=== PATIENT | female | born 1965 | race American Indian/Alaskan Native ===

== ENCOUNTER 2021-05-07 16:38 | Inpatient (IN) | payer MEDICARE ==
--- NOTE | 2021-05-08 08:19 | History and Physical Report ---
GP History & Physical - History of Present Illness Date of admission: 05/07/21 Date of Examination: 05/08/21 Reason for Admission: Danger to self, Failure of Outpatient Treatment, Severe anxiety/depression History of Present Illness: HPI: Presents to ER with SI with plan to slit her throat or cut wrist with knife. Per referral source, pt has stopped seeing her psychiatrist and has hx/o prior SI by OD in 2020. The patient was seen today. She is calm, and cooperative. She is sitting on side of the bed. She has a right BKA. The patient is a/o x 3. She says she verbalizes hearing voices telling her to kill herself. The patient also endorses SI with a plan to cut herself. She says she has a history of Bipolar and schizophrenia. The patient says she takes a lot of meds. She could not readily recall them but states she has them on a list. The patient denies any illicit drug use. 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 She says she smokes a pack of cigarets a day. The patient says she was living with her brother but states he told her if she came to the hospital she could not come back there. She says she is homeless. PAST PSYCHIATRIC HISTORY Diagnoses: Schizophrenia, Bipolar Suicide attempts or Self-harm behavior: Yes Prior psychiatric hospitalizations: Yes Substance Abuse history: Not in recent years Previous psychiatric medications tried: could not recall Outpatient treatment: Yes PAST MEDICAL HISTORY: None reported Family Psychiatric History: None reported or documented SOCIAL HISTORY Living arrangement: Homeless Marital status: Single Disabled REVIEW OF SYSTEMS Constitutional: Negative for weight loss ENT: Negative for stridor Respiratory: Negative for cough or hemoptysis All other systems reviewed and are negative MENTAL STATUS EXAMINATION General Appearance and Behavior: Age appropriate, good hygiene, wearing appro priate clothes, good eye contact, calm, cooperative Cooperation: Participating/engaged, but Guarded Psychomotor Behavior: Psychomotor normal Mood: Depressed Affect and affective range: congruent with stated mood Thought Process: goal directed Thought Content: helplessness, hallucinations Speech: normal tone and pace Suicidal Ideation: Yes Homicidal Ideation: Denies Hallucinations: Auditory Delusions: None elicited Impulse Control: Limited Insight and Judgment: Limited insight and judgment Memory: Limited Attention: attentive Orientation: Alert, oriented Assessment and Plan Schizophrenia Treatment Plan Patient admitted for inpatient psychiatric evaluation, medication adjustment and close monitoring The patient's behavior, mood, sleep and appetite will be closely monitored. Patient enrolled in individual and group therapeutic sessions and encouraged to attend. Patient provided with a safe and structured environment. Patient's physical health needs will be addressed by the Hospitalist. Hospitalist Consulted Labs including CBC, CMP, Lipid profile and Hemoglobin A1C levels ordered for baseline reference Social Assessment will be completed and the Oral Pathologist will work with patient and family to ensure a suitable and safe disposition Medication adjustment will be made as clinically indicated Continue home meds Usual Wellness Restorationist/Preservation: - Start Trazodone 50 mg po QHS & 50 mg po QHS PRN between 10 PM & 2 AM for insomnia - Start Melatonin 5 mg po QHS to promote circadian rhythm The patient agreed on the treatment plan, understood the risk, benefit, alternative treatment, potential consequence of no treatment, and gave informed consent. Estimated days: Post hospital care: primary care provider, psychiatric provider Case staffed with Dr. Woodward Legal Status: Voluntary Reaction to Hospitalization: Accepting Medications and Allergies Allergies Allergy/AdvReac Type Severity Reaction Status Date / Time aspirin Allergy Unknown Verified 05/08/21 02:24 Penicillins Allergy Unknown Verified 05/08/21 02:24 tetracycline Allergy Unknown Verified 05/08/21 02:24 Home Medications Medication Instructions Recorded Confirmed Last Taken Type Apixaban [Eliquis] 5 mg PO BID 05/07/21 05/07/21 Unknown History AtorvaSTATin [Lipitor] 20 mg PO QHS 05/07/21 05/07/21 Unknown History Divalproex [Osmin ANN] 1,000 mg PO BID 05/07/21 05/07/21 Unknown History Gabapentin [Neurontin] 300 mg PO TID 05/07/21 05/07/21 Unknown History Latanoprost 0.005% [Xalatan 0.005%] 1 drop OP QPM 05/07/21 05/07/21 Unknown History Sertraline [Zoloft] 100 mg PO QDAY 05/07/21 05/07/21 Unknown History Sitagliptin Phosphate [Januvia] 100 mg PO DAILY 05/07/21 05/07/21 Unknown History haloperidoL [Haloperidol] 5 mg PO QPM 05/07/21 05/07/21 Unknown History levETIRAcetam [Keppra TAB] 1,000 mg PO BID 05/07/21 05/07/21 Unknown History metFORMIN [Glucophage] 500 mg PO BID 05/07/21 05/07/21 Unknown History Results - Results Labs/Vitals: Laboratory Last Values POC Glucose 149 mg/dL (70-105) H 05/08/21 06:05 Last Vital Signs Temp 98.9 F 05/08/21 01:10 Pulse 89 05/08/21 01:10 Resp 18 05/08/21 01:10 BP 134/76 05/08/21 01:10 Pulse Ox 97 05/08/21 01:10 Physical Examination - Constitutional Vitals: Vital Signs Temp Pulse Resp BP Pulse Ox 98.9 F 89 18 134/76 97 05/08/21 01:10 05/08/21 01:10 05/08/21 01:10 05/08/21 01:10 05/08/21 01:10 Temperature -Last 24 Hours Temperature 98.9 F Mental Status Exam - Vital signs Last Vital Signs Temp 98.9 F 05/08/21 01:10 Pulse 89 05/08/21 01:10 Resp 18 05/08/21 01:10 BP 134/76 05/08/21 01:10 Pulse Ox 97 05/08/21 01:10 Physician Certification - Certification Statement Physician Certification Statement: This is an acknowledgement statement that PRESLEY HERNANDEZ is a 55 year old F who requires inpatient psychiatric admission for treatment which could reasonably be expected to improve the patient's condition for Estimated period of time patient will need to remain in the hospital: [ ] Plan for post-hospital care: [ ]
[2021-05-08] MEDS: SERTRALINE 100 MG TAB PO SCH (09:37)
[2021-05-08] MEDS: DIVALPROEX DR 500 MG TAB PO SCH ×2 (09:37→21:32)
[2021-05-08] MEDS: levETIRAcetam 500 MG TAB PO SCH ×2 (09:37→21:33)
[2021-05-08] MEDS: GABAPENTIN 300 MG CAP PO SCH ×3 (09:43→21:32)
[2021-05-08] MEDS: metFORMIN 500 MG TAB PO SCH ×2 (09:43→17:17)
[2021-05-08] MEDS ORDERED: NON-FORMULARY EACH (Sitagliptin Phosphate [Januvia] 100 MG Tablet) PO SCH (10:00)
[2021-05-08] MEDS ORDERED: NON-FORMULARY EACH (Apixaban 5 MG Tablet) PO SCH (10:00)
--- NOTE | 2021-05-08 10:56 | Consultation ---
History of Present Illness - Reason for Consult Consult date: 05/08/21 Medical Management Requesting physician: NGUYỄN DAVIS - History of Present Illness 55 YO Female HTN, OA, Seizure Disorder, COPD, HLD, DM, PE on therapeutic anticoagulation with Eliquis, Schizophrenia, Bipolar Disorder admitted to [facility] for psychiatric stabilization. Consult placed by Dr. Davis for medical management. Pt seen and evaluated in the recreation room. Pt resting comfortably. Patient appears to be at baseline level of cognition and function. No reports of fever, chills, chest pain, palpitation or productive cough, skin rash, recent contact, known exposure to COVID-19. Past History Past Medical History: diabetes, hypertension Past Surgical History: No surgical history, Other (Reviewed) Social history: single. denies: smoking, alcohol abuse Family history: hypertension Medications and Allergies Allergies Allergy/AdvReac Type Severity Reaction Status Date / Time aspirin Allergy Unknown Verified 05/08/21 02:24 Penicillins Allergy Unknown Verified 05/08/21 02:24 tetracycline Allergy Unknown Verified 05/08/21 02:24 Home Medications Medication Instructions Recorded Confirmed Last Taken Type Apixaban [Eliquis] 5 mg PO BID 05/07/21 05/07/21 Unknown History AtorvaSTATin [Lipitor] 20 mg PO QHS 05/07/21 05/07/21 Unknown History Divalproex [Osmin ANN] 1,000 mg PO BID 05/07/21 05/07/21 Unknown History Gabapentin [Neurontin] 300 mg PO TID 05/07/21 05/07/21 Unknown History Latanoprost 0.005% [Xalatan 0.005%] 1 drop OP QPM 05/07/21 05/07/21 Unknown History Sertraline [Zoloft] 100 mg PO QDAY 05/07/21 05/07/21 Unknown History Sitagliptin Phosphate [Januvia] 100 mg PO DAILY 05/07/21 05/07/21 Unknown History haloperidoL [Haloperidol] 5 mg PO QPM 05/07/21 05/07/21 Unknown History levETIRAcetam [Keppra TAB] 1,000 mg PO BID 05/07/21 05/07/21 Unknown History metFORMIN [Glucophage] 500 mg PO BID 05/07/21 05/07/21 Unknown History Active Meds: Active Medications Apixaban (Apixaban 5 Mg Tab) 5 mg PO Q12HR [facility] Atorvastatin Calcium (Atorvastatin 20 Mg Tab) 20 mg PO QHS [facility] Divalproex Sodium (Divalproex Dr 500 Mg Tab) 1,000 mg PO BID [facility] Last Admin: 05/08/21 09:37 Dose: 1,000 mg Gabapentin (Gabapentin 300 Mg Cap) 300 mg PO TID [facility] Last Admin: 05/08/21 09:43 Dose: 300 mg Haloperidol (Haloperidol 5 Mg Tab) 5 mg PO QPM [facility] Latanoprost (Latanoprost 0.005% Ophth Soln 2.5 Ml) 1 drops OU QPM [facility] Levetiracetam (Levetiracetam 500 Mg Tab) 1,000 mg PO BID [facility] Last Admin: 05/08/21 09:37 Dose: 1,000 mg Linagliptin (Linagliptin 5 Mg Tab) 5 mg PO QDDIAB [facility] Metformin HCl (Metformin 500 Mg Tab) 500 mg PO BIDDIAB [facility] Last Admin: 05/08/21 09:43 Dose: 500 mg Sertraline HCl (Sertraline 100 Mg Tab) 100 mg PO QDAY [facility] Last Admin: 05/08/21 09:37 Dose: 100 mg Review of Systems Constitutional: no weight loss, no weight gain, no chills Ears, nose, mouth and throat: no ear pain, no tinnitis, no decreased hearing, no nose pain, no nasal discharge Breasts: no change in shape, no swelling Cardiovascular: no chest pain, no orthopnea, no palpitations, no edema Respiratory: no cough, no cough with sputum, no shortness of breath Gastrointestinal: no abdominal pain, no nausea, no diarrhea, no change in bowel habits, no hematemesis Genitourinary Female: no pelvic pain, no flank pain, no dysuria, no urinary frequency, no urgency Rectal: no pain, no incontinence, no bleeding Musculoskeletal: no neck stiffness, no neck pain Integumentary: no rash, no pruritis, no redness, no wounds, no jaundice Neurological: no head injury, no paralysis, no parathesias, no tingling, no seizures Psychiatric: depression, mood swings, no sleep disturbances Endocrine: no cold intolerance, no polyphagia, no excessive thirst, no polyuria, no excessive sweating Hematologic/Lymphatic: no easy bruising, no easy bleeding Allergic/Immunologic: no allergic rhinitis, no wheezing Exam - Constitutional Vitals: Temp Pulse Resp BP Pulse Ox 98.9 F 89 18 134/76 97 05/08/21 01:10 05/08/21 01:10 05/08/21 01:10 05/08/21 01:10 05/08/21 01:10 General appearance: Present: no acute distress, well-nourished - EENT Eyes: Present: PERRL ENT: hearing intact, clear oral mucosa - Neck Neck: Present: supple, normal ROM - Respiratory Respiratory effort: normal Respiratory: bilateral: CTA - Cardiovascular Heart Sounds: Present: S1 & S2. Absent: rub, click - Extremities Extremities: pulses symmetrical, No edema Peripheral Pulses: within normal limits - Abdominal General gastrointestinal: Present: soft, non-tender, non-distended, normal bowel sounds Female genitourinary: Present: normal - Integumentary Integumentary: Present: clear, warm, dry - Musculoskeletal Musculoskeletal: gait normal, strength equal bilaterally - Psychiatric Psychiatric: cooperative - Neurologic Neurologic: CNII-XII intact, moves all extremities Results - Labs Labs: Abnormal lab results 05/08/21 Range/Units 06:05 POC Glucose 149 H (70-105) mg/dL Assessment and Plan - Patient Problems (1) Hypertension Current Visit: Yes Status: Acute Qualifiers: Hypertension type: primary hypertension Qualified Code(s): I10 - Essential (primary) hypertension Plan to address problem: Monitor blood pressure every shift, continue medical management. (2) Diabetes Current Visit: Yes Status: Acute Plan to address problem: Consistent carbohydrate diet, Accu-Chek, insulin protocol, hypoglycemia protocol, continue oral antihyperglycemic therapy. (3) Pulmonary embolism Current Visit: Yes Status: Acute Plan to address problem: Continue therapeutic anticoagulation, supportive care. (4) Schizophrenia Current Visit: Yes Status: Acute Qualifiers: Schizophrenia type: unspecified Qualified Code(s): F20.9 - Schizophrenia, unspecified Plan to address problem: Supportive care, continue medical management. (5) Bipolar disorder Current Visit: Yes Status: Acute Plan to address problem: Supportive care, continue medical management. (6) COPD (chronic obstructive pulmonary disease) Current Visit: Yes Status: Acute Plan to address problem: Supplemental oxygen, pulse oximetry as clinically indicated, supportive care. No acute exacerbation at this time. (7) Seizure disorder Current Visit: Yes Status: Acute Plan to address problem: Continue antiepileptic therapy with Keppra, supportive care, seizure precautions. (8) Osteoarthritis Current Visit: Yes Status: Acute Plan to address problem: Pain control, NSAID therapy as clinically indicated, supportive care. (9) Advance care planning Current Visit: Yes Status: Acute Plan to address problem: Disease education conducted, care plan discussed, diagnoses discussed, prognosis discussed, patient is full code. Patient knowledges understanding agree with care plan, +30 minutes.
[2021-05-08] MEDS: LINAGLIPTIN 5 MG TAB PO SCH (17:17)
[2021-05-08] MEDS: APIXABAN 5 MG TAB PO SCH ×2 (17:17→21:33)
[2021-05-08] MEDS: LATANOPROST 0.005% OPHTH SOLN 2.5 ML OU SCH (17:17)
[2021-05-08] MEDS: HALOPERIDOL 5 MG TAB PO SCH (18:00)
--- NOTE | 2021-05-09 09:28 | Progress Note ---
Subjective Date of service: 05/09/21 Subjective Comment: The patient was seen this morning. She reports doing well; endorses depression rating as 5/10. The patient reports sleep and appetite as ok. She denies any current suicidal/homicidal ideation and denies hallucinations. REVIEW OF SYSTEMS Constitutional: Negative for weight loss ENT: Negative for stridor Respiratory: Negative for cough or hemoptysis All other systems reviewed and are negative MENTAL STATUS EXAMINATION General Appearance and Behavior: Age appropriate, good hygiene, wearing appropriate clothes, good eye contact, calm, cooperative Cooperation: Participating/engaged, but Guarded Psychomotor Behavior: Psychomotor normal Mood: Depressed Affect and affective range: congruent with stated mood Thought Process: goal directed Thought Content: reality Speech: normal tone and pace Suicidal Ideation: Denies Homicidal Ideation: Denies Hallucinations: Denies Delusions: None elicited Impulse Control: Limited Insight and Judgment: Limited insight and judgment Memory: Limited Attention: attentive Orientation: Alert, oriented Assessment and Plan Schizophrenia Treatment Plan Patient admitted for inpatient psychiatric evaluation, medication adjustment and close monitoring The patient's behavior, mood, sleep and appetite will be closely monitored. Patient enrolled in individual and group therapeutic sessions and encouraged to attend. Patient provided with a safe and structured environment. Patient's physical health needs will be addressed by the Hospitalist. Hospitalist Consulted Labs including CBC, CMP, Lipid profile and Hemoglobin A1C levels ordered for baseline reference Social Assessment will be completed and the Production Proofreader will work with patient and family to ensure a suitable and safe disposition Medication adjustment will be made as clinically indicated Continue home meds Usual Wellness Jain/Preservation: - Start Trazodone 50 mg po QHS & 50 mg po QHS PRN between 10 PM & 2 AM for insomnia - Start Melatonin 5 mg po QHS to promote circadian rhythm The patient agreed on the treatment plan, understood the risk, benefit, alternative treatment, potential consequence of no treatment, and gave informed consent. Estimated days: Post hospital care: primary care provider, psychiatric provider Case staffed with Dr. Woodward Legal Status: Voluntary Reaction to Hospitalization: Accepting Medications and Allergies Medications and Allergies Allergies Allergy/AdvReac Type Severity Reaction Status Date / Time aspirin Allergy Unknown Verified 05/08/21 02:24 Penicillins Allergy Unknown Verified 05/08/21 02:24 tetracycline Allergy Unknown Verified 05/08/21 02:24 Home Medications Medication Instructions Recorded Confirmed Last Taken Type Apixaban [Eliquis] 5 mg PO BID 05/07/21 05/07/21 Unknown History AtorvaSTATin [Lipitor] 20 mg PO QHS 05/07/21 05/07/[address] [Osmin ANN] 1,000 mg PO BID 05/07/21 05/07/21 Unknown History Gabapentin [Neurontin] 300 mg PO TID 05/07/21 05/07/21 Unknown History Latanoprost 0.005% [Xalatan 0.005%] 1 drop OP QPM 05/07/21 05/07/21 Unknown History Sertraline [Zoloft] 100 mg PO QDAY 05/07/21 05/07/21 Unknown History Sitagliptin Phosphate [Januvia] 100 mg PO DAILY 05/07/21 05/07/21 Unknown History haloperidoL [Haloperidol] 5 mg PO QPM 05/07/21 05/07/21 Unknown History levETIRAcetam [Keppra TAB] 1,000 mg PO BID 05/07/21 05/07/21 Unknown History metFORMIN [Glucophage] 500 mg PO BID 05/07/21 05/07/21 Unknown History Active Meds: Active Medications Apixaban (Apixaban 5 Mg Tab) 5 mg PO Q12HR [facility] Last Admin: 05/08/21 21:33 Dose: 5 mg Atorvastatin Calcium (Atorvastatin 20 Mg Tab) 20 mg PO QHS [facility] Last Admin: 05/08/21 21:33 Dose: 20 mg Divalproex Sodium (Divalproex Dr 500 Mg Tab) 500 mg PO BID [facility] Gabapentin (Gabapentin 300 Mg Cap) 300 mg PO TID [facility] Last Admin: 05/08/21 21:32 Dose: 300 mg Haloperidol (Haloperidol 5 Mg Tab) 5 mg PO QPM [facility] Latanoprost (Latanoprost 0.005% Ophth Soln 2.5 Ml) 1 drops OU QPM [facility] Last Admin: 05/08/21 17:17 Dose: 1 drops Levetiracetam (Levetiracetam 500 Mg Tab) 1,000 mg PO BID [facility] Last Admin: 05/08/21 21:33 Dose: 1,000 mg Linagliptin (Linagliptin 5 Mg Tab) 5 mg PO QDDIAB [facility] Last Admin: 05/08/21 17:17 Dose: 5 mg Metformin HCl (Metformin 500 Mg Tab) 500 mg PO BIDDIAB [facility] Last Admin: 05/08/21 17:17 Dose: Not Given Sertraline HCl (Sertraline 100 Mg Tab) 100 mg PO QDAY [facility] Last Admin: 05/08/21 09:37 Dose: 100 mg Results - Results Labs/Vitals: Laboratory Last Values POC Glucose 102 mg/dL (70-105) 05/09/21 05:46 Last Vital Signs Temp 98.2 F 05/08/21 22:00 Pulse 83 05/08/21 22:00 Resp 17 05/08/21 22:00 BP 132/77 05/08/21 22:00 Pulse Ox 98 05/08/21 19:49
[2021-05-09] MEDS: GABAPENTIN 300 MG CAP PO SCH ×3 (14:00→20:27)
[2021-05-09] MEDS: levETIRAcetam 500 MG TAB PO SCH ×2 (14:00→21:06)
[2021-05-09] MEDS: SERTRALINE 100 MG TAB PO SCH (14:00)
[2021-05-09] MEDS: APIXABAN 5 MG TAB PO SCH ×2 (14:00→21:06)
[2021-05-09] MEDS: DIVALPROEX DR 500 MG TAB PO SCH ×2 (14:00→21:06)
[2021-05-09] MEDS: LINAGLIPTIN 5 MG TAB PO SCH (14:00)
[2021-05-09] MEDS: metFORMIN 500 MG TAB PO SCH ×2 (16:21→17:10)
[2021-05-09] MEDS: HALOPERIDOL 5 MG TAB PO SCH (17:10)
[2021-05-09] MEDS: LATANOPROST 0.005% OPHTH SOLN 2.5 ML OU SCH (17:10)
--- NOTE | 2021-05-10 08:38 | Progress Note ---
Subjective Date of service: 05/10/21 Subjective Comment: 05/10/21: The patient was seen this morning. She is mute but communicated via writing " My name is Wendy Agosto and I an 85 years old." She presents with flat affect. Per nurse, "Pt in bed alert and awake. Pt has being awake since the past 3hrs. Restlessness/disoriented." 05/09/21:The patient was seen this morning. She reports doing well; endorses depression rating as 5/10. The patient reports sleep and appetite as ok. She denies any current suicidal/homicidal ideation and denies hallucinations. REVIEW OF SYSTEMS Constitutional: Negative for weight loss ENT: Negative for stridor Respiratory: Negative for cough or hemoptysis All other systems reviewed and are negative MENTAL STATUS EXAMINATION General Appearance and Behavior: Age appropriate, good hygiene, wearing appropr iate clothes, good eye contact, calm, cooperative Cooperation: Participating/engaged, but Guarded Psychomotor Behavior: Psychomotor normal Mood: Depressed Affect and affective range: flat Thought Process: goal directed Thought Content: reality Speech: normal tone and pace Suicidal Ideation: Denies Homicidal Ideation: Denies Hallucinations: Denies Delusions: None elicited Impulse Control: Limited Insight and Judgment: Limited insight and judgment Memory: Limited Attention: attentive Orientation: Alert, oriented Assessment and Plan Schizophrenia Treatment Plan Patient admitted for inpatient psychiatric evaluation, medication adjustment and close monitoring The patient's behavior, mood, sleep and appetite will be closely monitored. Patient enrolled in individual and group therapeutic sessions and encouraged to attend. Patient provided with a safe and structured environment. Patient's physical health needs will be addressed by the Hospitalist. Hospitalist Consulted Labs including CBC, CMP, Lipid profile and Hemoglobin A1C levels ordered for baseline reference Social Assessment will be completed and the Civil Process Server will work with patient and family to ensure a suitable and safe disposition Medication adjustment will be made as clinically indicated Continue home meds Usual Wellness Taoist/Preservation: - Start Trazodone 50 mg po QHS & 50 mg po QHS PRN between 10 PM & 2 AM for insomnia - Start Melatonin 5 mg po QHS to promote circadian rhythm The patient agreed on the treatment plan, understood the risk, benefit, alternative treatment, potential consequence of no treatment, and gave informed consent. Estimated days: Post hospital care: primary care provider, psychiatric provider Case staffed with Dr. Woodward Legal Status: Voluntary Reaction to Hospitalization: Accepting Medications and Allergies Medications and Allergies Allergies Allergy/AdvReac Type Severity Reaction Status Date / Time aspirin Allergy Unknown Verified 05/08/21 02:24 Penicillins Allergy Unknown Verified 05/08/21 02:24 tetracycline Allergy Unknown Verified 05/08/21 02:24 Home Medications Medication Instructions Recorded Confirmed Last Taken Type Apixaban [Eliquis] 5 mg PO BID 05/07/21 05/07/21 Unknown History AtorvaSTATin [Lipitor] 20 mg PO QHS 05/07/21 05/07/[address] [DepaKOLATRELL DR] 1,000 mg PO BID 05/07/21 05/07/21 Unknown History Gabapentin [Neurontin] 300 mg PO TID 05/07/21 05/07/21 Unknown History Latanoprost 0.005% [Xalatan 0.005%] 1 drop OP QPM 05/07/21 05/07/21 Unknown History Sertraline [Zoloft] 100 mg PO QDAY 05/07/21 05/07/21 Unknown History Sitagliptin Phosphate [Januvia] 100 mg PO DAILY 05/07/21 05/07/21 Unknown History haloperidoL [Haloperidol] 5 mg PO QPM 05/07/21 05/07/21 Unknown History levETIRAcetam [Keppra TAB] 1,000 mg PO BID 05/07/21 05/07/21 Unknown History metFORMIN [Glucophage] 500 mg PO BID 05/07/21 05/07/21 Unknown History Active Meds: Active Medications Apixaban (Apixaban 5 Mg Tab) 5 mg PO Q12HR [facility] Last Admin: 05/09/21 21:06 Dose: 5 mg Atorvastatin Calcium (Atorvastatin 20 Mg Tab) 20 mg PO QHS [facility] Last Admin: 05/09/21 21:06 Dose: 20 mg Divalproex Sodium (Divalproex Dr 500 Mg Tab) 500 mg PO BID [facility] Last Admin: 05/09/21 21:06 Dose: 500 mg Gabapentin (Gabapentin 300 Mg Cap) 300 mg PO TID [facility] Last Admin: 05/09/21 20:27 Dose: 300 mg Haloperidol (Haloperidol 5 Mg Tab) 5 mg PO QPM [facility] Last Admin: 05/09/21 17:10 Dose: 5 mg Latanoprost (Latanoprost 0.005% Ophth Soln 2.5 Ml) 1 drops OU QPM [facility] Last Admin: 05/09/21 17:10 Dose: 1 drops Levetiracetam (Levetiracetam 500 Mg Tab) 1,000 mg PO BID [facility] Last Admin: 05/09/21 21:06 Dose: 1,000 mg Linagliptin (Linagliptin 5 Mg Tab) 5 mg PO QDDIAB [facility] Last Admin: 05/09/21 14:00 Dose: 5 mg Metformin HCl (Metformin 500 Mg Tab) 500 mg PO BIDDIAB [facility] Last Admin: 05/09/21 17:10 Dose: 500 mg Sertraline HCl (Sertraline 100 Mg Tab) 100 mg PO QDAY [facility] Last Admin: 05/09/21 14:00 Dose: 100 mg Results - Results Labs/Vitals: Laboratory Last Values POC Glucose 126 mg/dL (70-105) H 05/10/21 06:11 Last Vital Signs Temp 99.1 F 05/09/21 20:00 Pulse 83 05/09/21 22:00 Resp 17 05/09/21 20:00 BP 132/77 05/09/21 22:00 Pulse Ox 79 L 05/09/21 20:00
[2021-05-10] MEDS ORDERED: ZIPRASIDONE MESYLATE 20 MG VIAL IM PRN (08:48)
[2021-05-10] MEDS: GABAPENTIN 300 MG CAP PO SCH ×3 (09:52→21:06)
[2021-05-10] MEDS: levETIRAcetam 500 MG TAB PO SCH ×2 (09:52→21:06)
[2021-05-10] MEDS: metFORMIN 500 MG TAB PO SCH ×2 (09:52→17:09)
[2021-05-10] MEDS: DIVALPROEX DR 500 MG TAB PO SCH ×2 (09:52→21:06)
[2021-05-10] MEDS: APIXABAN 5 MG TAB PO SCH ×2 (09:52→21:06)
[2021-05-10] MEDS: LINAGLIPTIN 5 MG TAB PO SCH (09:52)
[2021-05-10] MEDS: SERTRALINE 100 MG TAB PO SCH (09:52)
[2021-05-10] MEDS: LATANOPROST 0.005% OPHTH SOLN 2.5 ML OU SCH (17:09)
[2021-05-10] MEDS: HALOPERIDOL 5 MG TAB PO SCH (17:09)
[2021-05-11] MEDS: SERTRALINE 100 MG TAB PO SCH (09:07)
[2021-05-11] MEDS: metFORMIN 500 MG TAB PO SCH ×2 (09:07→18:51)
[2021-05-11] MEDS: APIXABAN 5 MG TAB PO SCH ×2 (09:10→21:09)
[2021-05-11] MEDS: DIVALPROEX DR 500 MG TAB PO SCH ×2 (09:10→21:08)
[2021-05-11] MEDS: levETIRAcetam 500 MG TAB PO SCH ×2 (09:11→21:09)
--- NOTE | 2021-05-11 09:11 | Progress Note ---
Subjective Date of service: 05/11/21 Subjective Comment: 05/11/21:The patient was seen this morning. She reports doing well; reports sleep and appetite as fair. She endorses depression, rates as 4/10 and anxiety as 7/10. She denies any current suicidal/homicidal ideation but admits having intermittent visual hallucination. 05/10/21: The patient was seen this morning. She is mute but communicated via writing " My name is Wendy Agosto and I an 85 years old." She presents with flat affect. Per nurse, "Pt in bed alert and awake. Pt has being awake since the past 3hrs. Restlessness/disoriented." 05/09/21:The patient was seen this morning. She reports doing well; endorses depression rating as 5/10. The patient reports sleep and appetite as ok. She denies any current suicidal/homicidal ideation and denies hallucinations. REVIEW OF SYSTEMS Constitutional: Negative for weight loss ENT: Negative for stridor Respiratory: Negative for cough or hemoptysis All other systems reviewed and are negative MENTAL STATUS EXAMINATION General Appearance and Behavior: Age appropriate, good hygiene, wearing appropriate clothes, good eye contact, calm, cooperative Cooperation: Participating/engaged, but Guarded Psychomotor Behavior: Psychomotor normal Mood: Depressed Affect and affective range: flat Thought Process: goal directed Thought Content: reality Speech: normal tone and pace Suicidal Ideation: Denies Homicidal Ideation: Denies Hallucinations: Visual hallucinations Delusions: None elicited Impulse Control: Limited Insight and Judgment: Limited insight and judgment Memory: Limited Attention: attentive Orientation: Alert, oriented Assessment and Plan Schizophrenia Treatment Plan Patient admitted for inpatient psychiatric evaluation, medication adjustment and close monitoring The patient's behavior, mood, sleep and appetite will be closely monitored. Patient enrolled in individual and group therapeutic sessions and encouraged to attend. Patient provided with a safe and structured environment. Patient's physical health needs will be addressed by the Hospitalist. Hospitalist Consulted Labs including CBC, CMP, Lipid profile and Hemoglobin A1C levels ordered for baseline reference Social Assessment will be completed and the Jet Inspector will work with patient and family to ensure a suitable and safe disposition Medication adjustment will be made as clinically indicated Continue home meds Usual Wellness Anabaptism/Preservation: - Start Trazodone 50 mg po QHS & 50 mg po QHS PRN between 10 PM & 2 AM for insomnia - Start Melatonin 5 mg po QHS to promote circadian rhythm The patient agreed on the treatment plan, understood the risk, benefit, alternative treatment, potential consequence of no treatment, and gave informed consent. Estimated days: Post hospital care: primary care provider, psychiatric provider Case staffed with Dr. Woodward Legal Status: Voluntary Reaction to Hospitalization: Accepting Medications and Allergies Medications and Allergies Allergies Allergy/AdvReac Type Severity Reaction Status Date / Time aspirin Allergy Unknown Verified 05/08/21 02:24 Penicillins Allergy Unknown Verified 05/08/21 02:24 tetracycline Allergy Unknown Verified 05/08/21 02:24 Home Medications Medication Instructions Recorded Confirmed Last Taken Type Apixaban [Eliquis] 5 mg PO BID 05/07/21 05/07/21 Unknown History AtorvaSTATin [Lipitor] 20 mg PO QHS 05/07/21 05/07/[address] [DepaKOTE DR] 1,000 mg PO BID 05/07/21 05/07/21 Unknown History Gabapentin [Neurontin] 300 mg PO TID 05/07/21 05/07/21 Unknown History Latanoprost 0.005% [Xalatan 0.005%] 1 drop OP QPM 05/07/21 05/07/21 Unknown History Sertraline [Zoloft] 100 mg PO QDAY 05/07/21 05/07/21 Unknown History Sitagliptin Phosphate [Januvia] 100 mg PO DAILY 05/07/21 05/07/21 Unknown History haloperidoL [Haloperidol] 5 mg PO QPM 05/07/21 05/07/21 Unknown History levETIRAcetam [Keppra TAB] 1,000 mg PO BID 05/07/21 05/07/21 Unknown History metFORMIN [Glucophage] 500 mg PO BID 05/07/21 05/07/21 Unknown History Active Meds: Active Medications Apixaban (Apixaban 5 Mg Tab) 5 mg PO Q12HR [facility] Last Admin: 05/10/21 21:06 Dose: Not Given Atorvastatin Calcium (Atorvastatin 20 Mg Tab) 20 mg PO QHS [facility] Last Admin: 05/10/21 21:07 Dose: Not Given Divalproex Sodium (Divalproex Dr 500 Mg Tab) 1,000 mg PO BID [facility] Last Admin: 05/10/21 21:06 Dose: Not Given Gabapentin (Gabapentin 300 Mg Cap) 300 mg PO TID [facility] Last Admin: 05/10/21 21:06 Dose: Not Given Haloperidol (Haloperidol 5 Mg Tab) 5 mg PO QPM [facility] Last Admin: 05/10/21 17:09 Dose: 5 mg Latanoprost (Latanoprost 0.005% Ophth Soln 2.5 Ml) 1 drops OU QPM [facility] Last Admin: 05/10/21 17:09 Dose: 1 drops Levetiracetam (Levetiracetam 500 Mg Tab) 1,000 mg PO BID [facility] Last Admin: 05/10/21 21:06 Dose: Not Given Linagliptin (Linagliptin 5 Mg Tab) 5 mg PO QDDIAB [facility] Last Admin: 05/10/21 09:52 Dose: 5 mg Metformin HCl (Metformin 500 Mg Tab) 500 mg PO BIDDIAB [facility] Last Admin: 05/11/21 09:07 Dose: 500 mg Sertraline HCl (Sertraline 100 Mg Tab) 100 mg PO QDAY [facility] Last Admin: 05/11/21 09:07 Dose: 100 mg Ziprasidone (Ziprasidone Mesylate 20 Mg Vial) 20 mg IM Q4H PRN PRN Reason: Agitation Results - Results Labs/Vitals: Laboratory Last Values POC Glucose 126 mg/dL (70-105) H 05/10/21 06:11 Last Vital Signs Temp 98.5 F 05/10/21 09:44 Pulse 78 05/10/21 09:44 Resp 18 05/10/21 09:44 BP 97/70 05/10/21 09:44 Pulse Ox 98 05/10/21 09:44
[2021-05-11] MEDS: LINAGLIPTIN 5 MG TAB PO SCH (09:12)
[2021-05-11] MEDS: GABAPENTIN 300 MG CAP PO SCH ×3 (09:13→21:08)
--- NOTE | 2021-05-11 12:41 | Progress Note ---
Assessment and Plan - Patient Problems (1) Hypertension Current Visit: Yes Status: Acute Qualifiers: Hypertension type: primary hypertension Qualified Code(s): I10 - Essential (primary) hypertension Plan to address problem: Monitor blood pressure every shift, continue medical management. (2) Diabetes Current Visit: Yes Status: Acute Plan to address problem: Consistent carbohydrate diet, Accu-Chek, insulin protocol, hypoglycemia protocol, continue oral antihyperglycemic therapy. (3) Pulmonary embolism Current Visit: Yes Status: Acute Plan to address problem: Continue therapeutic anticoagulation, supportive care. (4) Schizophrenia Current Visit: Yes Status: Acute Qualifiers: Schizophrenia type: unspecified Qualified Code(s): F20.9 - Schizophrenia, unspecified Plan to address problem: Supportive care, continue medical management. (5) Bipolar disorder Current Visit: Yes Status: Acute Plan to address problem: Supportive care, continue medical management. (6) COPD (chronic obstructive pulmonary disease) Current Visit: Yes Status: Acute Plan to address problem: Supplemental oxygen, pulse oximetry as clinically indicated, supportive care. No acute exacerbation at this time. (7) Seizure disorder Current Visit: Yes Status: Acute Plan to address problem: Continue antiepileptic therapy with Keppra, supportive care, seizure precautions. (8) Osteoarthritis Current Visit: Yes Status: Acute Plan to address problem: Pain control, NSAID therapy as clinically indicated, supportive care. (9) Advance care planning Current Visit: Yes Status: Acute Plan to address problem: Disease education conducted, care plan discussed, diagnoses discussed, prognosis discussed, patient is full code. Patient knowledges understanding agree with care plan, +30 minutes. History Interval history: 55 YO Female HTN, OA, Seizure Disorder, COPD, HLD, DM, PE on therapeutic anticoagulation with Eliquis, Schizophrenia, Bipolar Disorder admitted to [facility] for psychiatric stabilization. Consult placed by Dr. Kilgore for medical management. Pt seen and evaluated in the recreation room. Pt resting comfortably. Patient appears to be at baseline level of cognition and function. Hospitalist Physical - Constitutional Vitals: Temp Pulse Resp BP Pulse Ox 98.5 F 78 18 97/70 98 05/10/21 09:44 05/10/21 09:44 05/10/21 09:44 05/10/21 09:44 05/10/21 09:44 General appearance: Present: no acute distress, well-nourished - EENT Eyes: Present: PERRL, EOM intact ENT: hearing intact - Neck Neck: Present: supple - Respiratory Respiratory effort: normal Respiratory: bilateral: CTA - Cardiovascular Rhythm: regular Heart Sounds: Present: S1 & S2 - Extremities Extremities: no ischemia Peripheral Pulses: within normal limits - Abdominal General gastrointestinal: soft, non-tender, non-distended - Integumentary Integumentary: Present: clear, dry - Psychiatric Psychiatric: cooperative - Neurologic Neurologic: CNII-XII intact Results - Labs Labs: Laboratory Last Values POC Glucose 109 mg/dL (70-105) H 05/11/21 07:30 [place]mon/IV: Voiding Method Diaper Active Medications - Current Medications Current Medications: Generic Name Dose Route Start Last Admin Trade Name Freq PRN Reason Stop Dose Admin Apixaban 5 mg 05/08/21 10:00 05/11/21 09:10 Apixaban 5 Mg Tab PO 5 mg Q12HR [facility] Administration Atorvastatin Calcium 20 mg 05/08/21 22:00 05/10/21 21:07 Atorvastatin 20 Mg Tab PO Not Given QHS [facility] Divalproex Sodium 1,000 mg 05/10/21 10:00 05/11/21 09:[address] 500 Mg Tab PO 1,000 mg BID [facility] Administration Gabapentin 300 mg 05/08/21 09:00 05/11/21 09:13 Gabapentin 300 Mg Cap PO 300 mg TID [facility] Administration Haloperidol 5 mg 05/08/21 18:00 05/10/21 17:09 Haloperidol 5 Mg Tab PO 5 mg QPM [facility] Administration Latanoprost 1 drops 05/08/21 18:00 05/10/21 17:09 Latanoprost 0.005% Ophth Soln 2.5 Ml OU 1 drops QPM [facility] Administration Levetiracetam 1,000 mg 05/08/21 10:00 05/11/21 09:11 Levetiracetam 500 Mg Tab PO 1,000 mg BID [facility] Administration Linagliptin 5 mg 05/08/21 11:00 05/11/21 09:12 Linagliptin 5 Mg Tab PO 5 mg QDDIAB [facility] Administration Metformin HCl 500 mg 05/08/21 10:00 05/11/21 09:07 Metformin 500 Mg Tab PO 500 mg BIDDIAB [facility] Administration Sertraline HCl 100 mg 05/08/21 10:00 05/11/21 09:07 Sertraline 100 Mg Tab PO 100 mg QDAY [facility] Administration Ziprasidone 20 mg 05/10/21 08:48 Ziprasidone Mesylate 20 Mg Vial IM Q4H PRN Agitation
[2021-05-11] MEDS: HALOPERIDOL 5 MG TAB PO SCH (18:51)
[2021-05-11] MEDS: LATANOPROST 0.005% OPHTH SOLN 2.5 ML OU SCH (18:52)
--- NOTE | 2021-05-12 09:00 | Progress Note ---
Subjective Date of service: 05/12/21 Subjective Comment: 05/12/21: The patient was seen resting in the bed this morning. She reports doing well. The patient continues to present with depressive mood. She denies any current suicidal/homicidal ideation and denies hallucinations. Per nurse, "Prior to going to bed, pt had a struggle with peer over a picture. Staff members intervened & took the picture. Pt slept throughout the night with no further incident. Refused lab work this AM." 05/11/21:The patient was seen this morning. She reports doing well; reports sleep and appetite as fair. She endorses depression, rates as 4/10 and anxiety as 7/10. She denies any current suicidal/homicidal ideation but admits having intermittent visual hallucination. 05/10/21: The patient was seen this morning. She is mute but communicated via writing " My name is Wendy Agosto and I an 85 years old." She presents with flat affect. Per nurse, "Pt in bed alert and awake. Pt has being awake since the past 3hrs. Restlessness/disoriented." 05/09/21:The patient was seen this morning. She reports doing well; endorses depression rating as 5/10. The patient reports sleep and appetite as ok. She denies any current suicidal/homicidal ideation and denies hallucinations. REVIEW OF SYSTEMS Constitutional: Negative for weight loss ENT: Negative for stridor Respiratory: Negative for cough or hemoptysis All other systems reviewed and are negative MENTAL STATUS EXAMINATION General Appearance and Behavior: Age appropriate, good hygiene, wearing appropriate clothes, good eye contact, calm, cooperative Cooperation: Participating/engaged, but Guarded Psychomotor Behavior: Psychomotor normal Mood: Depressed Affect and affective range: flat Thought Process: goal directed Thought Content: reality Speech: normal tone and pace Suicidal Ideation: Denies Homicidal Ideation: Denies Hallucinations: Visual hallucinations Delusions: None elicited Impulse Control: Limited Insight and Judgment: Limited insight and judgment Memory: Limited Attention: attentive Orientation: Alert, oriented Assessment and Plan Schizophrenia Treatment Plan Patient admitted for inpatient psychiatric evaluation, medication adjustment and close monitoring The patient's behavior, mood, sleep and appetite will be closely monitored. Patient enrolled in individual and group therapeutic sessions and encouraged to attend. Patient provided with a safe and structured environment. Patient's physical health needs will be addressed by the Hospitalist. Hospitalist Consulted Labs including CBC, CMP, Lipid profile and Hemoglobin A1C levels ordered for baseline reference Social Assessment will be completed and the [facility] will work with patient and family to ensure a suitable and safe disposition Medication adjustment will be made as clinically indicated Continue home meds Usual Wellness Baptism/Preservation: - Start Trazodone 50 mg po QHS & 50 mg po QHS PRN between 10 PM & 2 AM for insomnia - Start Melatonin 5 mg po QHS to promote circadian rhythm The patient agreed on the treatment plan, understood the risk, benefit, alternative treatment, potential consequence of no treatment, and gave informed consent. Estimated days: Post hospital care: primary care provider, psychiatric provider Case staffed with Dr. Woodward Legal Status: Voluntary Reaction to Hospitalization: Accepting Medications and Allergies Medications and Allergies Allergies Allergy/AdvReac Type Severity Reaction Status Date / Time aspirin Allergy Unknown Verified 05/08/21 02:24 Penicillins Allergy Unknown Verified 05/08/21 02:24 tetracycline Allergy Unknown Verified 05/08/21 02:24 Home Medications Medication Instructions Recorded Confirmed Last Taken Type Apixaban [Eliquis] 5 mg PO BID 05/07/21 05/07/21 Unknown History AtorvaSTATin [Lipitor] 20 mg PO QHS 05/07/21 05/07/21 Unknown History Divalproex [Osmin ANN] 1,000 mg PO BID 05/07/21 05/07/21 Unknown History Gabapentin [Neurontin] 300 mg PO TID 05/07/21 05/07/21 Unknown History Latanoprost 0.005% [Xalatan 0.005%] 1 drop OP QPM 05/07/21 05/07/21 Unknown History Sertraline [Zoloft] 100 mg PO QDAY 05/07/21 05/07/21 Unknown History Sitagliptin Phosphate [Januvia] 100 mg PO DAILY 05/07/21 05/07/21 Unknown History haloperidoL [Haloperidol] 5 mg PO QPM 05/07/21 05/07/21 Unknown History levETIRAcetam [Keppra TAB] 1,000 mg PO BID 05/07/21 05/07/21 Unknown History metFORMIN [Glucophage] 500 mg PO BID 05/07/21 05/07/21 Unknown History Active Meds: Active Medications Apixaban (Apixaban 5 Mg Tab) 5 mg PO Q12HR [facility] Last Admin: 05/11/21 21:09 Dose: 5 mg Atorvastatin Calcium (Atorvastatin 20 Mg Tab) 20 mg PO QHS [facility] Last Admin: 05/11/21 21:09 Dose: 20 mg Divalproex Sodium (Divalproex Dr 500 Mg Tab) 1,000 mg PO BID [facility] Last Admin: 05/11/21 21:08 Dose: 1,000 mg Gabapentin (Gabapentin 300 Mg Cap) 300 mg PO TID [facility] Last Admin: 05/11/21 21:08 Dose: 300 mg Haloperidol (Haloperidol 5 Mg Tab) 5 mg PO QPM [facility] Last Admin: 05/11/21 18:51 Dose: 5 mg Latanoprost (Latanoprost 0.005% Ophth Soln 2.5 Ml) 1 drops OU QPM [facility] Last Admin: 05/11/21 18:52 Dose: 1 drops Levetiracetam (Levetiracetam 500 Mg Tab) 1,000 mg PO BID [facility] Last Admin: 05/11/21 21:09 Dose: 1,000 mg Linagliptin (Linagliptin 5 Mg Tab) 5 mg PO QDDIAB [facility] Last Admin: 05/11/21 09:12 Dose: 5 mg Metformin HCl (Metformin 500 Mg Tab) 500 mg PO BIDDIAB [facility] Last Admin: 05/11/21 18:51 Dose: 500 mg Sertraline HCl (Sertraline 100 Mg Tab) 100 mg PO QDAY [facility] Last Admin: 05/11/21 09:07 Dose: 100 mg Ziprasidone (Ziprasidone Mesylate 20 Mg Vial) 20 mg IM Q4H PRN PRN Reason: Agitation Results - Results Labs/Vitals: Laboratory Last Values POC Glucose 109 mg/dL (70-105) H 05/11/21 07:30 Last Vital Signs Temp 98.5 F 05/10/21 09:44 Pulse 78 05/10/21 09:44 Resp 18 05/10/21 09:44 BP 97/70 05/10/21 09:44 Pulse Ox 98 05/10/21 09:44
[2021-05-12] MEDS: LINAGLIPTIN 5 MG TAB PO SCH (10:03)
[2021-05-12] MEDS: GABAPENTIN 300 MG CAP PO SCH ×3 (10:03→20:38)
[2021-05-12] MEDS: levETIRAcetam 500 MG TAB PO SCH ×2 (10:03→21:16)
[2021-05-12] MEDS: metFORMIN 500 MG TAB PO SCH ×2 (10:03→17:25)
[2021-05-12] MEDS: APIXABAN 5 MG TAB PO SCH ×2 (10:03→21:16)
[2021-05-12] MEDS: DIVALPROEX DR 500 MG TAB PO SCH ×2 (10:03→21:16)
[2021-05-12] MEDS: SERTRALINE 100 MG TAB PO SCH (10:03)
--- NOTE | 2021-05-12 13:39 | Progress Note ---
Assessment and Plan (1) Hypertension Current Visit: Yes Status: Acute Qualifiers: Hypertension type: primary hypertension Qualified Code(s): I10 - Essential (primary) hypertension Plan to address problem: Continues to have optimal control at this point no change in medical management. Monitor blood pressure every shift, continue medical management. (2) Diabetes Current Visit: Yes Status: Acute Plan to address problem: Consistent carbohydrate diet, Accu-Chek, insulin protocol, hypoglycemia protocol, continue oral antihyperglycemic therapy. (3) Pulmonary embolism Current Visit: Yes Status: Acute Plan to address problem: No evidence of bleeding on physical exam. Continue therapeutic anticoagulation, supportive care. (4) Schizophrenia Current Visit: Yes Status: Acute Qualifiers: Schizophrenia type: unspecified Qualified Code(s): F20.9 - Schizophrenia, unspecified Plan to address problem: Supportive care, continue medical management. (5) Bipolar disorder Current Visit: Yes Status: Acute Plan to address problem: Supportive care, continue medical management. (6) COPD (chronic obstructive pulmonary disease) Current Visit: Yes Status: Acute Plan to address problem: Supplemental oxygen, pulse oximetry as clinically indicated, supportive care. No acute exacerbation at this time. (7) Seizure disorder Current Visit: Yes Status: Acute Plan to address problem: Continue antiepileptic therapy with Keppra, supportive care, seizure precautions. (8) Osteoarthritis Current Visit: Yes Status: Acute Plan to address problem: No need for NSAIDs at this time patient pain control. Pain control, NSAID therapy as clinically indicated, supportive care. (9) Advance care planning Current Visit: Yes Status: Acute Plan to address problem: Disease education conducted, care plan discussed, diagnoses discussed, prognosis discussed, patient is full code. Patient knowledges understanding agree with care plan, +22 minutes. Subjective Date of service: 05/12/21 Principal diagnosis: Hypertension Interval history: Patient currently doing well. In the day area. Sit down read with the patient. She answer questions appeared to be cooperative. No new concerns. Objective - Constitutional General appearance: Present: no acute distress, well-nourished - EENT Eyes: PERRL, EOM intact ENT: hearing intact, clear oral mucosa Ears: bilateral: normal - Neck Neck: supple, normal ROM - Respiratory Respiratory effort: normal Respiratory: bilateral: CTA - Breasts Breasts: normal - Cardiovascular Rhythm: regular Heart Sounds: Present: S1 & S2. Absent: gallop, rub Extremities: pulses intact, No edema, normal color, Full ROM - Gastrointestinal General gastrointestinal: Present: soft, non-tender, non-distended, normal bowel sounds - Genitourinary Female genitourinary: normal - Integumentary Integumentary: clear, warm, dry - Musculoskeletal Musculoskeletal: 1, strength equal bilaterally - Neurologic Neurologic: moves all extremities - Psychiatric Psychiatric: memory intact, appropriate mood/affect, intact judgment & insight
[2021-05-12] MEDS: HALOPERIDOL 5 MG TAB PO SCH (17:25)
[2021-05-12] MEDS: LATANOPROST 0.005% OPHTH SOLN 2.5 ML OU SCH (17:45)
--- NOTE | 2021-05-13 09:08 | Progress Note ---
Subjective Date of service: 05/13/21 Principal diagnosis: Hypertension Subjective Comment: 05/13/21: The patient was seen at breakfast. She reports doing well. She states she is refusing blood draw because her veins are hard to find; the patient was encouraged to allow blood to be drawn. She reports sleep as good. the patient is focused on discharge. She denies any current suicidal/homicidal ideation and denies hallucinations. 05/12/21: The patient was seen resting in the bed this morning. She reports doing well. The patient continues to present with depressive mood. She denies any current suicidal/homicidal ideation and denies hallucinations. Per nurse, "Prior to going to bed, pt had a struggle with peer over a picture. Staff members intervened & took the picture. Pt slept throughout the night with no further incident. Refused lab work this AM." 05/11/21:The patient was seen this morning. She reports doing well; reports sleep and appetite as fair. She endorses depression, rates as 4/10 and anxiety as 7/10. She denies any current suicidal/homicidal ideation but admits having intermittent visual hallucination. 05/10/21: The patient was seen this morning. She is mute but communicated via writing " My name is Wendy Agosto and I an 85 years old." She presents with flat affect. Per nurse, "Pt in bed alert and awake. Pt has being awake since the past 3hrs. Restlessness/disoriented." 05/09/21:The patient was seen this morning. She reports doing well; endorses depression rating as 5/10. The patient reports sleep and appetite as ok. She denies any current suicidal/homicidal ideation and denies hallucinations. REVIEW OF SYSTEMS Constitutional: Negative for weight loss ENT: Negative for stridor Respiratory: Negative for cough or hemoptysis All other systems reviewed and are negative MENTAL STATUS EXAMINATION General Appearance and Behavior: Age appropriate, good hygiene, wearing appropriate clothes, good eye contact, calm, cooperative Cooperation: Participating/engaged, but Guarded Psychomotor Behavior: Psychomotor normal Mood: Depressed Affect and affective range: congruent Thought Process: Goal directed Thought Content: Reality oriented Speech: normal tone and pace Suicidal Ideation: Denies Homicidal Ideation: Denies Hallucinations: Denies Delusions: None elicited Impulse Control: Limited Insight and Judgment: Limited insight and judgment Memory: Limited Attention: attentive Orientation: Alert, oriented Assessment and Plan Schizophrenia Treatment Plan Patient admitted for inpatient psychiatric evaluation, medication adjustment and close monitoring The patient's behavior, mood, sleep and appetite will be closely monitored. Patient enrolled in individual and group therapeutic sessions and encouraged to attend. Patient provided with a safe and structured environment. Patient's physical health needs will be addressed by the Hospitalist. Hospitalist Consulted Labs including CBC, CMP, Lipid profile and Hemoglobin A1C levels ordered for baseline reference Social Assessment will be completed and the [employer] Consultant will work with pat ient and family to ensure a suitable and safe disposition Medication adjustment will be made as clinically indicated Continue home meds Usual Wellness Moravian/Preservation: - Start Trazodone 50 mg po QHS & 50 mg po QHS PRN between 10 PM & 2 AM for insomnia - Start Melatonin 5 mg po QHS to promote circadian rhythm The patient agreed on the treatment plan, understood the risk, benefit, alternative treatment, potential consequence of no treatment, and gave informed consent. Estimated days: 2 Post hospital care: primary care provider, psychiatric provider Case staffed with Dr. Woodward Legal Status: Voluntary Reaction to Hospitalization: Accepting Medications and Allergies Medications and Allergies Allergies Allergy/AdvReac Type Severity Reaction Status Date / Time aspirin Allergy Unknown Verified 05/08/21 02:24 Penicillins Allergy Unknown Verified 05/08/21 02:24 tetracycline Allergy Unknown Verified 05/08/21 02:24 Home Medications Medication Instructions Recorded Confirmed Last Taken Type Apixaban [Eliquis] 5 mg PO BID 05/07/21 05/07/21 Unknown History AtorvaSTATin [Lipitor] 20 mg PO QHS 05/07/21 05/07/21 Unknown History Divalproex [Osmin ANN] 1,000 mg PO BID 05/07/21 05/07/21 Unknown History Gabapentin [Neurontin] 300 mg PO TID 05/07/21 05/07/21 Unknown History Latanoprost 0.005% [Xalatan 0.005%] 1 drop OP QPM 05/07/21 05/07/21 Unknown History Sertraline [Zoloft] 100 mg PO QDAY 05/07/21 05/07/21 Unknown History Sitagliptin Phosphate [Januvia] 100 mg PO DAILY 05/07/21 05/07/21 Unknown History haloperidoL [Haloperidol] 5 mg PO QPM 05/07/21 05/07/21 Unknown History levETIRAcetam [Keppra TAB] 1,000 mg PO BID 05/07/21 05/07/21 Unknown History metFORMIN [Glucophage] 500 mg PO BID 05/07/21 05/07/21 Unknown History Active Meds: Active Medications Apixaban (Apixaban 5 Mg Tab) 5 mg PO Q12HR [facility] Last Admin: 05/12/21 21:16 Dose: 5 mg Atorvastatin Calcium (Atorvastatin 20 Mg Tab) 20 mg PO QHS [facility] Last Admin: 05/12/21 21:16 Dose: 20 mg Divalproex Sodium (Divalproex Dr 500 Mg Tab) 1,000 mg PO BID [facility] Last Admin: 05/12/21 21:16 Dose: 1,000 mg Gabapentin (Gabapentin 300 Mg Cap) 300 mg PO TID [facility] Last Admin: 05/12/21 20:38 Dose: 300 mg Haloperidol (Haloperidol 5 Mg Tab) 5 mg PO QPM [facility] Last Admin: 05/12/21 17:25 Dose: 5 mg Latanoprost (Latanoprost 0.005% Ophth Soln 2.5 Ml) 1 drops OU QPM [facility] Last Admin: 05/12/21 17:45 Dose: 1 drops Levetiracetam (Levetiracetam 500 Mg Tab) 1,000 mg PO BID [facility] Last Admin: 05/12/21 21:16 Dose: 1,000 mg Linagliptin (Linagliptin 5 Mg Tab) 5 mg PO QDDIAB [facility] Last Admin: 05/12/21 10:03 Dose: 5 mg Metformin HCl (Metformin 500 Mg Tab) 500 mg PO BIDDIAB [facility] Last Admin: 05/12/21 17:25 Dose: 500 mg Sertraline HCl (Sertraline 100 Mg Tab) 100 mg PO QDAY [facility] Last Admin: 05/12/21 10:03 Dose: 100 mg Ziprasidone (Ziprasidone Mesylate 20 Mg Vial) 20 mg IM Q4H PRN PRN Reason: Agitation Results - Results Labs/Vitals: Laboratory Last Values POC Glucose 84 mg/dL (70-105) 05/12/21 06:44 Last Vital Signs Temp 98.5 F 05/12/21 22:00 Pulse 76 05/12/21 22:00 Resp 16 05/12/21 22:00 BP 123/74 05/12/21 22:00 Pulse Ox 100 05/12/21 22:00
[2021-05-13] MEDS: SERTRALINE 100 MG TAB PO SCH (09:20)
[2021-05-13] MEDS: APIXABAN 5 MG TAB PO SCH ×2 (09:20→21:36)
[2021-05-13] MEDS: metFORMIN 500 MG TAB PO SCH ×2 (09:20→16:29)
[2021-05-13] MEDS: GABAPENTIN 300 MG CAP PO SCH ×3 (09:20→20:52)
[2021-05-13] MEDS: levETIRAcetam 500 MG TAB PO SCH ×2 (09:20→21:35)
[2021-05-13] MEDS: LINAGLIPTIN 5 MG TAB PO SCH (09:20)
[2021-05-13] MEDS: DIVALPROEX DR 500 MG TAB PO SCH ×2 (09:20→21:35)
[2021-05-13] MEDS: HALOPERIDOL 5 MG TAB PO SCH (18:10)
[2021-05-13] MEDS: LATANOPROST 0.005% OPHTH SOLN 2.5 ML OU SCH (18:12)
--- NOTE | 2021-05-13 18:33 | Progress Note ---
Assessment and Plan Assessment and plan: (1) Hypertension Current Visit: Yes Status: Acute Qualifiers: Hypertension type: primary hypertension Qualified Code(s): I10 - Essential (primary) hypertension Plan to address problem: Continues to have optimal control at this point no change in medical management. Monitor blood pressure every shift, continue medical management. (2) Diabetes Current Visit: Yes Status: Acute Plan to address problem: Consistent carbohydrate diet, Accu-Chek, insulin protocol, hypoglycemia protocol, continue oral antihyperglycemic therapy. (3) Pulmonary embolism Current Visit: Yes Status: Acute Plan to address problem: No evidence of bleeding on physical exam. Continue therapeutic anticoagulation, supportive care. (4) Schizophrenia Current Visit: Yes Status: Acute Qualifiers: Schizophrenia type: unspecified Qualified Code(s): F20.9 - Schizophrenia, unspecified Plan to address problem: Supportive care, continue medical management. (5) Bipolar disorder Current Visit: Yes Status: Acute Plan to address problem: Supportive care, continue medical management. (6) COPD (chronic obstructive pulmonary disease) Current Visit: Yes Status: Acute Plan to address problem: Supplemental oxygen, pulse oximetry as clinically indicated, supportive care. No acute exacerbation at this time. (7) Seizure disorder Current Visit: Yes Status: Acute Plan to address problem: Continue antiepileptic therapy with Keppra, supportive care, seizure precautions. (8) Osteoarthritis Current Visit: Yes Status: Acute Plan to address problem: No need for NSAIDs at this time patient pain control. Pain control, NSAID therapy as clinically indicated, supportive care. (9) Advance care planning Current Visit: Yes Status: Acute Plan to address problem: Disease education conducted, care plan discussed, diagnoses discussed, prognosis discussed, patient is full code. Patient knowledges understanding agree with care plan, +22 minutes. Closely monitor patient and adjust management as needed Call us with questions History Interval history: I have seen and examined the patient in the activities room Patient's chart and medications reviewed Patient history of, no new complaints No new events reported by the nursing staff Vital signs noted Hospitalist Physical - Constitutional Vitals: Temp Pulse Resp BP Pulse Ox 98.9 F 78 16 113/71 97 05/13/21 09:07 05/13/21 09:08 05/13/21 09:07 05/13/21 09:07 05/13/21 09:08 General appearance: Present: no acute distress, well-nourished - EENT Eyes: Present: PERRL, EOM intact - Neck Neck: Present: supple, normal ROM - Respiratory Respiratory effort: normal Respiratory: bilateral: diminished, negative: rales, rhonchi, wheezing - Cardiovascular Rhythm: regular Heart Sounds: Present: S1 & S2 - Extremities Extremities: no ischemia, No edema - Abdominal General gastrointestinal: soft, non-tender, normal bowel sounds - Integumentary Integumentary: Present: clear, warm - Psychiatric Psychiatric: appropriate mood/affect, cooperative - Neurologic Neurologic: CNII-XII intact, moves all extremities Results - Labs Labs: Laboratory Last Values POC Glucose 119 mg/dL (70-105) H 05/13/21 06:21 [place]/IV: Voiding Method Toilet Active Medications - Current Medications Current Medications: Generic Name Dose Route Start Last Admin Trade Name Freq PRN Reason Stop Dose Admin Apixaban 5 mg 05/08/21 10:00 05/13/21 09:20 Apixaban 5 Mg Tab PO 5 mg Q12HR [facility] Administration Atorvastatin Calcium 20 mg 05/08/21 22:00 05/12/21 21:16 Atorvastatin 20 Mg Tab PO 20 mg QHS [facility] Administration Divalproex Sodium 1,000 mg 05/10/21 10:00 05/13/21 09:[address] 500 Mg Tab PO 1,000 mg BID [facility] Administration Gabapentin 300 mg 05/08/21 09:00 05/13/21 13:49 Gabapentin 300 Mg Cap PO 300 mg TID [facility] Administration Haloperidol 5 mg 05/08/21 18:00 05/13/21 18:10 Haloperidol 5 Mg Tab PO 5 mg QPM [facility] Administration Latanoprost 1 drops 05/08/21 18:00 05/13/21 18:12 Latanoprost 0.005% Ophth Soln 2.5 Ml OU 1 drops QPM [facility] Administration Levetiracetam 1,000 mg 05/08/21 10:00 05/13/21 09:20 Levetiracetam 500 Mg Tab PO 1,000 mg BID [facility] Administration Linagliptin 5 mg 05/08/21 11:00 05/13/21 09:20 Linagliptin 5 Mg Tab PO 5 mg QDDIAB [facility] Administration Metformin HCl 500 mg 05/08/21 10:00 05/13/21 16:29 Metformin 500 Mg Tab PO 500 mg BIDDIAB [facility] Administration Sertraline HCl 100 mg 05/08/21 10:00 05/13/21 09:20 Sertraline 100 Mg Tab PO 100 mg QDAY [facility] Administration Ziprasidone 20 mg 05/10/21 08:48 Ziprasidone Mesylate 20 Mg Vial IM Q4H PRN Agitation
[2021-05-13 23:07] VITALS: BP 115/69
[2021-05-14] MEDS: metFORMIN 500 MG TAB PO SCH (07:38)
[2021-05-14] MEDS: GABAPENTIN 300 MG CAP PO SCH ×2 (07:38→14:24)
[2021-05-14] MEDS: LINAGLIPTIN 5 MG TAB PO SCH (07:39)
--- NOTE | 2021-05-14 09:08 | Discharge Summary ---
Providers - Providers Date of Admission: 05/08/21 02:18 Date of discharge: 05/14/21 Attending physician: NGUYỄN DAVIS MD 05/08/21 00:46 Consult to Physician [CONS] Routine Comment: Consulting Provider: ROSELINE LUGO Physician Instructions: Please manage the existing proplems Reason For Exam: New admission Primary care physician: ADMINISTRATIVE ASSISTANT Hospitalization Reason for admission: Delusions Admitting Diagnosis: F22 - DELUSIONAL DISORDERS Condition: Stable Hospital course: The patient was provided inpatient psychiatric treatment with safe and supportive environment, group/individual therapy, psychiatric medication, medication adjustment, adverse effect monitor, medical evaluation, medical treatment, social service assessment, social support meeting, placement assessment and psycho-education. The patients mood, cognition, behavior, motivation, compliance to treatment and appreciation on family/social support are improved and stabilized. At the time of discharge, the patient had no suicidal ideas, no homicidal ideas, no aggressive thoughts, no endangering behavior and no debilitating adverse effects. The patient agreed on the treatment plan, understood the risk, benefit, alternative treatment, potential consequence of no treatment, and gave informed consent. Progress Note: 05/13/21: The patient was seen at breakfast. She reports doing well. She states she is refusing blood draw because her veins are hard to find; the patient was encouraged to allow blood to be drawn. She reports sleep as good. the patient is focused on discharge. She denies any current suicidal/homicidal ideation and denies hallucinations. 05/12/21: The patient was seen resting in the bed this morning. She reports doing well. The patient continues to present with depressive mood. She denies any current suicidal/homicidal ideation and denies hallucinations. Per nurse, "Prior to going to bed, pt had a struggle with peer over a picture. Staff members intervened & took the picture. Pt slept throughout the night with no further incident. Refused lab work this AM." 05/11/21:The patient was seen this morning. She reports doing well; reports sleep and appetite as fair. She endorses depression, rates as 4/10 and anxiety as 7/10. She denies any current suicidal/homicidal ideation but admits having intermittent visual hallucination. 05/10/21: The patient was seen this morning. She is mute but communicated via writing " My name is Wendy Agosto and I an 85 years old." She presents with flat affect. Per nurse, "Pt in bed alert and awake. Pt has being awake since the past 3hrs. Restlessness/disoriented." 05/09/21:The patient was seen this morning. She reports doing well; endorses depression rating as 5/10. The patient reports sleep and appetite as ok. She denies any current suicidal/homicidal ideation and denies hallucinations. Disposition: 30 STILL A PATIENT Allergies/Adverse Reactions: Allergies aspirin Allergy (Verified 05/08/21 02:24) Unknown Penicillins Allergy (Verified 05/08/21 02:24) Unknown tetracycline Allergy (Verified 05/08/21 02:24) Unknown Vital Signs: Last Vital Signs Temp 98.6 F 05/13/21 20:19 Pulse 75 05/13/21 20:19 Resp 20 05/13/21 20:19 BP 115/69 05/13/21 20:19 Pulse Ox 98 05/13/21 20:19 Last Lab: Laboratory Last Values POC Glucose 107 mg/dL (70-105) H 05/13/21 21:15 Core Measure Documentation - Palliative Care Palliative Care/ Comfort Measures: Not Applicable - Core Measures Any of the following diagnoses?: none - VTE Discharge Requirements Deep Vein Thrombosis/Pulmonary Embolism Present on Admission: No Exam - Constitutional Vitals: Temp Pulse Resp BP Pulse Ox 98.6 F 75 20 115/69 98 05/13/21 20:19 05/13/21 20:19 05/13/21 20:19 05/13/21 20:19 05/13/21 20:19 Plan Activity: advance as tolerated Weight Bearing Status: Weight Bear as Tolerated Durable Medical Equipment Needed Upon Discharge: Wheelchair Care Plan Goals: Maintain good and stable mental health. Plan of Treatment: Plan of Treatment: The patient should be compliant with medications, not to use drugs and not to drink alcohol.The patient understands that if suicidal ideas, homicidal ideas, or any endangering thoughts/behavior arise, they should immediately seek for emergent assistance including but not limited to crisis hot line and emergency room. Follow up with outpatient Psychiatrist and PCP within 7 - 14 days of discharge. Follow up with: PRIMARY CARE,MD [Primary Care Provider] - 7 Days Prescriptions: Divalproex [Yong Schwartz] 1,000 mg PO BID 30 Days #60 tablet Gabapentin 300 mg PO TID 30 Days #90 capsule haloperidoL [Haldol] 5 mg PO QPM 30 Days #30 tablet Sertraline [Zoloft] 100 mg PO QDAY 30 Days #30 tablet
[2021-05-14] MEDS: DIVALPROEX DR 500 MG TAB PO SCH (09:16)
[2021-05-14] MEDS: APIXABAN 5 MG TAB PO SCH (09:16)
[2021-05-14] MEDS: levETIRAcetam 500 MG TAB PO SCH (09:16)
[2021-05-14] MEDS: SERTRALINE 100 MG TAB PO SCH (09:17)
== END 2021-05-14 14:15 | disposition home health service (06) | DRG 885 ==
LOC: 3A 16:38 → UNDOADMIN 16:38 → 5A 05-08 02:18
PROVIDERS: ADMIT Psychiatry & Neurology Psychiatry; ATTEND Psychiatry & Neurology Psychiatry
DX: F20.9 Schizophrenia, unspecified (principal); F31.9 Bipolar disorder, unspecified; E11.9 Type 2 diabetes mellitus without complications; J44.9 Chronic obstructive pulmonary disease, unspecified; G40.909 Epilepsy, unspecified, not intractable, without status epilepticus; F41.9 Anxiety disorder, unspecified; Z79.84 Long term (current) use of oral hypoglycemic drugs; M19.90 Unspecified osteoarthritis, unspecified site; E78.5 Hyperlipidemia, unspecified; Z82.49 Family history of ischemic heart disease and other diseases of the circulatory system; Z89.511 Acquired absence of right leg below knee; Z86.711 Personal history of pulmonary embolism; Z88.0 Allergy status to penicillin; Z88.8 Allergy status to other drugs, medicaments and biological substances; Z88.6 Allergy status to analgesic agent
CPT/HCPCS: 82962; G0378

== ENCOUNTER 2021-09-22 14:49 | Inpatient (IN) | payer OTHER, MEDICARE ==
--- NOTE | 2021-09-23 09:30 | History and Physical Report ---
GP History & Physical - History of Present Illness Date of admission: 09/22/21 Date of Examination: 09/23/21 Reason for Admission: Danger to self, Failure of Outpatient Treatment, Severe anxiety/depression History of Present Illness: The patient was seen today. She was admitted to [facility] for attempting to pull the t.v off the wall in order to break it and cut herself to end her life. During the evaluation, the patient is sitting in a wheelchair in the dayroom. She has a R-AKA. She is drowsy. The patient's speech is garbled, and incomprehensible. She is unable to engage in the evaluation. PAST PSYCHIATRIC HISTORY: Unable to obtain PAST MEDICAL HISTORY: None reported Family Psychiatric History: None reported or documented SOCIAL HISTORY Unable to obtain REVIEW OF SYSTEMS Unable to obtain MENTAL STATUS EXAMINATION Unable to Assessment (1) Bipolar Disorder Current Visit: Yes Status: Acute Treatment Plan Patient admitted for inpatient psychiatric evaluation, medication adjustment and close monitoring The patient's behavior, mood, sleep and appetite will be closely monitored. Patient enrolled in individual and group therapeutic sessions and encouraged to attend. Patient provided with a safe and structured environment. Patient's physical health needs will be addressed by the Hospitalist. Hospitalist Consulted Labs including CBC, CMP, Lipid profile and Hemoglobin A1C levels ordered for baseline reference Social Assessment will be completed and the [employer] Specialist will work with patient and family to ensure a suitable and safe disposition Medication adjustment will be made as clinically indicated Restarted home meds Usual Wellness Nondenominational/Preservation: - Start Trazodone 50 mg po QHS & 50 mg po QHS PRN between 10 PM & 2 AM for insomnia - Start Melatonin 5 mg po QHS to promote circadian rhythm The patient agreed on the treatment plan, understood the risk, benefit, alternative treatment, potential consequence of no treatment, and gave informed consent. Estimated days: 7 Post hospital care: primary care provider, psychiatric provider Case staffed with Dr. Woodward Legal Status: Voluntary Reaction to Hospitalization: Accepting Medications and Allergies Allergies Allergy/AdvReac Type Severity Reaction Status Date / Time aspirin Allergy Severe Anaphylaxis Verified 09/23/21 01:45 Penicillins Allergy Mild Itching Verified 09/23/21 01:45 tetracycline Allergy Itching Verified 09/23/21 01:45 Home Medications Medication Instructions Recorded Confirmed Last Taken Type AtorvaSTATin [Lipitor] 80 mg PO QHS 05/07/21 09/23/21 Unknown History Sitagliptin Phosphate [Januvia] 100 mg PO DAILY 05/07/21 09/23/21 Unknown History metFORMIN [Glucophage] 500 mg PO DAILY 05/07/21 09/23/21 Unknown History Apixaban [Eliquis] 5 mg PO Q12HR tablet 07/23/21 09/23/21 09/22/21 20:[address] [Depakote Dr] 1,000 mg PO BID 30 Days #60 07/23/21 09/23/21 09/22/21 20:55 Rx Gabapentin 300 mg PO TID 30 Days #90 capsule 07/23/21 09/23/21 09/22/21 20:55 Rx Sertraline [Zoloft] 100 mg PO QDAY 30 Days #30 tablet 07/23/21 09/23/21 09/22/21 09:00 Rx Pantoprazole [Protonix] 40 mg PO QDAY 09/23/21 09/23/21 Unknown History haloperidoL [Haldol] 5 mg PO QHS 09/23/21 09/23/21 Unknown History levETIRAcetam [Keppra TAB] 1,000 mg PO BID 09/23/21 09/23/21 09/22/21 20:55 History Active Meds: Active Medications Atorvastatin Calcium (Atorvastatin 20 Mg Tab) 80 mg PO QHS [facility] Divalproex Sodium (Divalproex Dr 500 Mg Tab) 1,000 mg PO BID [facility] Gabapentin (Gabapentin 300 Mg Cap) 300 mg PO TID [facility] Haloperidol (Haloperidol 5 Mg Tab) 5 mg PO QHS [facility] Levetiracetam (Levetiracetam 500 Mg Tab) 1,000 mg PO BID [facility] Metformin HCl (Metformin 500 Mg Tab) 500 mg PO DAILY [facility] Miscellaneous Medication (Apixaban) 5 mg PO Q12HR [facility] Miscellaneous Medication (Sitagliptin Phosphate [Januvia]) 100 mg PO DAILY [facility] Pantoprazole Sodium (Pantoprazole 40 Mg Tab) 40 mg PO QDAY [facility] Sertraline HCl (Sertraline 100 Mg Tab) 100 mg PO QDAY [facility] Results - Results Labs/Vitals: Laboratory Last Values POC Glucose 132 mg/dL (70-105) H 09/23/21 06:25 Last Vital Signs Temp 98.5 F 09/22/21 23:48 Pulse 98 H 09/22/21 23:48 Resp 16 09/22/21 23:48 BP 125/80 09/22/21 23:48 Pulse Ox 98 09/22/21 23:48 Physical Examination - Constitutional Vitals: Vital Signs Temp Pulse Resp BP Pulse Ox 98.5 F 98 H 16 125/80 98 09/22/21 23:48 09/22/21 23:48 09/22/21 23:48 09/22/21 23:48 09/22/21 23:48 Temperature -Last 24 Hours Temperature 98.5 F Mental Status Exam - Vital signs Last Vital Signs Temp 98.5 F 09/22/21 23:48 Pulse 98 H 09/22/21 23:48 Resp 16 09/22/21 23:48 BP 125/80 09/22/21 23:48 Pulse Ox 98 09/22/21 23:48 Physician Certification - Certification Statement Physician Certification Statement: This is an acknowledgement statement that PRESLEY HERNANDEZ is a 56 year old F who requires inpatient psychiatric admission for treatment which could reasonably be expected to improve the patient's condition for Estimated period of time patient will need to remain in the hospital: [ ] Plan for post-hospital care: [ ]
[2021-09-23] MEDS ORDERED: NON-FORMULARY EACH (Apixaban 5 MG Tablet) PO SCH (10:00)
[2021-09-23] MEDS ORDERED: NON-FORMULARY EACH (Sitagliptin Phosphate [Januvia] 100 MG Tablet) PO SCH (10:00)
[2021-09-23 10:58] LABS: Basophils % (Auto) 0.7 % (0.0-1.8); Eosinophils # (Auto) 0.1 K/mm3 (0.0-0.4); Eosinophils % (Auto) 2.2 % (0.0-4.3); Hematocrit 42.1 % (30.3-42.9); Hemoglobin 14.1 gm/dl (10.1-14.3); Lymphocytes # (Auto) 1.9 K/mm3 (1.2-5.4); Lymphocytes % (Auto) 41.6 % (13.4-35.0); Mean Corpuscular HGB Conc 33 % (30-34); Mean Corpuscular Volume 90 fl (79-97); Monocytes # (Auto) 0.3 K/mm3 (0.0-0.8); Monocytes % (Auto) 7.5 % (0.0-7.3); Platelet Count 167 K/mm3 (140-440); Red Cell Distribution Width 14.3 % (13.2-15.2)
[2021-09-23] MEDS: SERTRALINE 100 MG TAB PO SCH (11:04)
[2021-09-23] MEDS: metFORMIN 500 MG TAB PO SCH (11:04)
[2021-09-23] MEDS: DIVALPROEX DR 500 MG TAB PO SCH ×2 (11:04→21:50)
[2021-09-23 11:05] LABS: Alanine Aminotransferase 10 units/L (7-56); Albumin 4.2 g/dL (3.9-5); Blood Urea Nitrogen 14 mg/dL (7-17); Calcium 10.2 mg/dL (8.4-10.2); Chol/HDL Ratio 2.18 %; HDL Cholesterol 72 mg/dL (40-59); Hemolysis Index 4; LDL Cholesterol,Direct 59 mg/dL (50-130)
[2021-09-23] MEDS: PANTOPRAZOLE 40 MG TAB PO SCH (11:05)
[2021-09-23] MEDS: levETIRAcetam 500 MG TAB PO SCH ×2 (11:05→21:51)
[2021-09-23 11:24] LABS: BUN/Creatinine Ratio 23
--- NOTE | 2021-09-23 12:14 | Consultation ---
History of Present Illness - Reason for Consult Consult date: 09/23/21 medical management Requesting physician: NGUYỄN DAVIS - History of Present Illness 56 YO Female HTN, OA, Seizure Disorder, COPD, HLD, DM, PE on therapeutic anticoagulation with Eliquis, Schizophrenia, Bipolar Disorder admitted to [facility] for psychiatric stabilization. Consult placed by Dr. Davis for medical management. Pt seen and evaluated in the recreation room. Pt resting comfortably. Patient appears to be at baseline level of cognition and function. No reports of fever, chills, chest pain, palpitation or productive cough, skin rash, recent contact, known exposure to COVID-19. No reported nursing events. Past History Past Medical History: COPD, hypertension, pulmonary embolism, seizures, other (see hpi) Past Surgical History: No surgical history, Other (reviewed) Social history: single. denies: alcohol abuse Family history: diabetes, hypertension Medications and Allergies Allergies Allergy/AdvReac Type Severity Reaction Status Date / Time aspirin Allergy Severe Anaphylaxis Verified 09/23/21 01:45 Penicillins Allergy Mild Itching Verified 09/23/21 01:45 tetracycline Allergy Itching Verified 09/23/21 01:45 Home Medications Medication Instructions Recorded Confirmed Last Taken Type AtorvaSTATin [Lipitor] 80 mg PO QHS 05/07/21 09/23/21 Unknown History Sitagliptin Phosphate [Januvia] 100 mg PO DAILY 05/07/21 09/23/21 Unknown History metFORMIN [Glucophage] 500 mg PO DAILY 05/07/21 09/23/21 Unknown History Apixaban [Eliquis] 5 mg PO Q12HR tablet 07/23/21 09/23/21 09/22/21 20:55 Rx Divalproex [Yong Schwartz] 1,000 mg PO BID 30 Days #60 07/23/21 09/23/21 09/22/21 20:55 Rx Gabapentin 300 mg PO TID 30 Days #90 capsule 07/23/21 09/23/21 09/22/21 20:55 Rx Sertraline [Zoloft] 100 mg PO QDAY 30 Days #30 tablet 07/23/21 09/23/21 09/22/21 09:00 Rx Pantoprazole [Protonix] 40 mg PO QDAY 09/23/21 09/23/21 Unknown History haloperidoL [Haldol] 5 mg PO QHS 09/23/21 09/23/21 Unknown History levETIRAcetam [Keppra TAB] 1,000 mg PO BID 09/23/21 09/23/21 09/22/21 20:55 History Active Meds: Active Medications Apixaban (Apixaban 5 Mg Tab) 5 mg PO Q12HR [facility]; Protocol Atorvastatin Calcium (Atorvastatin 40 Mg Tab) 80 mg PO QHS [facility] Divalproex Sodium (Divalproex Dr 500 Mg Tab) 1,000 mg PO BID [facility] Last Admin: 09/23/21 11:04 Dose: 1,000 mg Gabapentin (Gabapentin 300 Mg Cap) 300 mg PO TID [facility] Haloperidol (Haloperidol 5 Mg Tab) 5 mg PO QHS [facility] Levetiracetam (Levetiracetam 500 Mg Tab) 1,000 mg PO BID [facility] Last Admin: 09/23/21 11:05 Dose: 1,000 mg Linagliptin (Linagliptin 5 Mg Tab) 5 mg PO QDAY [facility] Metformin HCl (Metformin 500 Mg Tab) 500 mg PO QAMDIAB [facility] Last Admin: 09/23/21 11:04 Dose: 500 mg Pantoprazole Sodium (Pantoprazole 40 Mg Tab) 40 mg PO QDAY [facility] Last Admin: 09/23/21 11:05 Dose: 40 mg Sertraline HCl (Sertraline 100 Mg Tab) 100 mg PO QDAY [facility] Last Admin: 09/23/21 11:04 Dose: 100 mg Review of Systems Constitutional: no weight loss, no weight gain, no fever, no chills Ears, nose, mouth and throat: no ear pain, no decreased hearing, no nose pain, no nasal discharge, no sinus pressure Breasts: no change in shape, no mass Cardiovascular: no edema, no syncope Respiratory: no cough, no hemoptysis, no dyspnea on exertion Gastrointestinal: no vomiting, no diarrhea, no change in bowel habits, no hematemesis Genitourinary Female: no pelvic pain, no flank pain, no dysuria, no urinary frequency Rectal: no pain Musculoskeletal: no neck stiffness, no arm numbness/tingling, no shooting leg pain Integumentary: no pruritis, no sores, no wounds, no jaundice Neurological: no transient paralysis, no weakness, no numbness, no seizures, no tremors Psychiatric: irritability, sadness/tearfullness, mood swings Endocrine: no cold intolerance, no heat intolerance Hematologic/Lymphatic: no easy bruising, no easy bleeding Exam - Constitutional Vitals: Temp Pulse Resp BP Pulse Ox 98.5 F 98 H 16 125/80 98 09/22/21 23:48 09/22/21 23:48 09/22/21 23:48 09/22/21 23:48 09/22/21 23:48 General appearance: Present: mild distress - EENT Eyes: Present: PERRL ENT: hearing intact, clear oral mucosa - Neck Neck: Present: supple, normal ROM - Respiratory Respiratory effort: normal Respiratory: bilateral: CTA - Cardiovascular Heart Sounds: Present: S1 & S2. Absent: rub, click - Extremities Extremities: pulses symmetrical, No edema Peripheral Pulses: within normal limits - Abdominal General gastrointestinal: Present: soft, non-tender, non-distended, normal bowel sounds Female genitourinary: Present: normal - Integumentary Integumentary: Present: clear, warm, dry - Musculoskeletal Musculoskeletal: gait normal, strength equal bilaterally - Psychiatric Psychiatric: cooperative - Neurologic Neurologic: CNII-XII intact, moves all extremities Results - Labs CBC & Chem 7: 09/23/21 10:29 09/23/21 10:29 Labs: Abnormal lab results 09/23/21 09/23/21 09/23/21 Range/Units 06:25 10:29 10:29 Lymph % (Auto) 41.6 H (13.4-35.0) % [place] % (Auto) 7.5 H (0.0-7.3) % Sodium 136 L (137-145) mmol/L Chloride 97.2 L (98-107) mmol/L Glucose 211 H (65-100) mg/dL POC Glucose 132 H (70-105) mg/dL Hemoglobin A1c (4-6) % HDL Cholesterol 72 H (40-59) mg/dL 09/23/21 09/23/21 Range/Units 10:29 11:50 Lymph % (Auto) (13.4-35.0) % [place] % (Auto) (0.0-7.3) % Sodium (137-145) mmol/L Chloride (98-107) mmol/L Glucose (65-100) mg/dL POC Glucose 178 H (70-105) mg/dL Hemoglobin A1c 7.3 H (4-6) % HDL Cholesterol (40-59) mg/dL Assessment and Plan - Patient Problems (1) Bipolar disorder Current Visit: No Status: Acute Plan to address problem: Continue medical management, supportive care. (2) COPD (chronic obstructive pulmonary disease) Current Visit: No Status: Acute Plan to address problem: No acute exacerbation at this time, continue medical management, supplemental oxygen as clinically indicated. (3) Diabetes Current Visit: No Status: Acute Plan to address problem: Consistent carbohydrate diet, Accu-Chek, insulin protocol, hypoglycemia protocol. (4) Hypertension Current Visit: No Status: Acute Qualifiers: Hypertension type: primary hypertension Qualified Code(s): I10 - Essential (primary) hypertension Plan to address problem: Monitor blood pressure every shift, continue medical management. (5) Osteoarthritis Current Visit: No Status: Acute Plan to address problem: Pain control, supportive care, continue medical management. (6) Pulmonary embolism Current Visit: No Status: Acute Plan to address problem: continue therapeutic anticoagulation, supportive care. (7) Seizure disorder Current Visit: No Status: Acute Plan to address problem: Continue current therapy, supportive care, no seizure activity at this time. (8) Advance care planning Current Visit: No Status: Acute Plan to address problem: Disease education done, care plan discussed, diagnoses discussed, prognosis discussed, patient is full code. Patient knowledges understanding and agreement with care plan, +30 minutes. (9) Preventative health care Current Visit: No Status: Acute Plan to address problem: Patient counseled regarding outpatient follow-up with primary care physician for all age and risk factor appropriate screening test. +30 minutes.
[2021-09-23] MEDS: LINAGLIPTIN 5 MG TAB PO SCH (16:36)
[2021-09-23] MEDS: GABAPENTIN 300 MG CAP PO SCH ×2 (16:37→21:50)
[2021-09-23] MEDS: APIXABAN 5 MG TAB PO SCH ×2 (17:55→21:52)
[2021-09-23 20:02] LABS: Hepatitis B Surface Antigen Non-Reactive (Negative); Hepatitis C Virus Antibody Non-Reactive (NonReactive)
[2021-09-23] MEDS: HALOPERIDOL 5 MG TAB PO SCH (21:51)
[2021-09-24] MEDS: DIVALPROEX DR 500 MG TAB PO SCH ×2 (09:41→21:05)
[2021-09-24] MEDS: PANTOPRAZOLE 40 MG TAB PO SCH (09:41)
[2021-09-24] MEDS: GABAPENTIN 300 MG CAP PO SCH ×3 (09:41→20:05)
[2021-09-24] MEDS: LINAGLIPTIN 5 MG TAB PO SCH (09:42)
[2021-09-24] MEDS: levETIRAcetam 500 MG TAB PO SCH ×2 (09:42→21:06)
[2021-09-24] MEDS: metFORMIN 500 MG TAB PO SCH (09:42)
[2021-09-24] MEDS: SERTRALINE 100 MG TAB PO SCH (09:42)
[2021-09-24] MEDS: APIXABAN 5 MG TAB PO SCH ×2 (10:13→21:05)
--- NOTE | 2021-09-24 15:20 | Progress Note ---
Subjective Date of service: 09/24/21 Principal diagnosis: Bipolar Disorder Subjective Comment: The patient was seen today. She is calm and cooperative. She patient has a hx of prior stroke. She is nonverbal. She communicates by thumbs up. The patient says she feels okay. She says she is hearing voices telling her to harm herself. She demonstrates by making punching motions toward her face. She says she did not sleep well. She give me a thumbs down when asked. She says she was depressed by a thumbs up. The patient says she did not sleep well. I asked was she SI/HI. She shrugs her shoulder. REVIEW OF SYSTEMS Unable to obtain MENTAL STATUS EXAMINATION Unable to Assessment (1) Bipolar Disorder Current Visit: Yes Status: Acute Treatment Plan Patient admitted for inpatient psychiatric evaluation, medication adjustment and close monitoring The patient's behavior, mood, sleep and appetite will be closely monitored. Patient enrolled in individual and group therapeutic sessions and encouraged to attend. Patient provided with a safe and structured environment. Patient's physical health needs will be addressed by the Hospitalist. Hospitalist Consulted Labs including CBC, CMP, Lipid profile and Hemoglobin A1C levels ordered for baseline reference Social Assessment will be completed and the Sexual Assault Nurse will work with patient and family to ensure a suitable and safe disposition Medication adjustment will be made as clinically indicated Start Abilify 5mg po daily Usual Wellness Anabaptism/Preservation: - Start Trazodone 50 mg po QHS & 50 mg po QHS PRN between 10 PM & 2 AM for insomnia - Start Melatonin 5 mg po QHS to promote circadian rhythm The patient agreed on the treatment plan, understood the risk, benefit, alternative treatment, potential consequence of no treatment, and gave informed consent. Estimated days: 7 Post hospital care: primary care provider, psychiatric provider Case staffed with Dr. Woodward Medications and Allergies Allergies Allergy/AdvReac Type Severity Reaction Status Date / Time aspirin Allergy Severe Anaphylaxis Verified 09/23/21 01:45 Penicillins Allergy Mild Itching Verified 09/23/21 01:45 tetracycline Allergy Itching Verified 09/23/21 01:45 Home Medications Medication Instructions Recorded Confirmed Last Taken Type AtorvaSTATin [Lipitor] 80 mg PO QHS 05/07/21 09/23/21 Unknown History Sitagliptin Phosphate [Januvia] 100 mg PO DAILY 05/07/21 09/23/21 Unknown History metFORMIN [Glucophage] 500 mg PO DAILY 05/07/21 09/23/21 Unknown History Apixaban [Eliquis] 5 mg PO Q12HR tablet 07/23/21 09/23/21 09/22/21 20:[address] [Depakote Dr] 1,000 mg PO BID 30 Days #60 07/23/21 09/23/21 09/22/21 20:55 Rx Gabapentin 300 mg PO TID 30 Days #90 capsule 07/23/21 09/23/21 09/22/21 20:55 Rx Sertraline [Zoloft] 100 mg PO QDAY 30 Days #30 tablet 07/23/21 09/23/21 09/22/21 09:00 Rx Pantoprazole [Protonix] 40 mg PO QDAY 09/23/21 09/23/21 Unknown History haloperidoL [Haldol] 5 mg PO QHS 09/23/21 09/23/21 Unknown History levETIRAcetam [Keppra TAB] 1,000 mg PO BID 09/23/21 09/23/21 09/22/21 20:55 History Active Meds: Active Medications Apixaban (Apixaban 5 Mg Tab) 5 mg PO Q12HR [facility]S [facility]CLUDE 234 BEDS AT THE [facility]; Protocol Last Admin: 09/24/21 10:13 Dose: 5 mg Atorvastatin Calcium (Atorvastatin 40 Mg Tab) 80 mg PO QHS [facility]S [facility]CLUDE 234 BEDS AT THE [facility] Last Admin: 09/23/21 22:40 Dose: 80 mg Divalproex Sodium (Divalproex Dr 500 Mg Tab) 1,000 mg PO BID [facility]S [facility]CLUDE 234 BEDS AT THE [facility] Last Admin: 09/24/21 09:41 Dose: 1,000 mg Gabapentin (Gabapentin 300 Mg Cap) 300 mg PO TID [facility]S [facility]CLUDE 234 BEDS AT THE [facility] Last Admin: 09/24/21 15:10 Dose: 300 mg Haloperidol (Haloperidol 5 Mg Tab) 5 mg PO QHS [facility]CLUDE 234 BEDS AT THE [facility] Last Admin: 09/23/21 21:51 Dose: 5 mg Levetiracetam (Levetiracetam 500 Mg Tab) 1,000 mg PO BID [facility]S [facility]CLUDE 234 BEDS AT THE [facility] Last Admin: 09/24/21 09:42 Dose: 1,000 mg Linagliptin (Linagliptin 5 Mg Tab) 5 mg PO QDAY [facility]S [facility]CLUDE 234 BEDS AT THE [facility] Last Admin: 09/24/21 09:42 Dose: 5 mg Metformin HCl (Metformin 500 Mg Tab) 500 mg PO QAMDIAB COUNTS [facility]CLUDE 234 BEDS AT THE [facility] Last Admin: 09/24/21 09:42 Dose: 500 mg Pantoprazole Sodium (Pantoprazole 40 Mg Tab) 40 mg PO QDAY [facility]S [facility]CLUDE 234 BEDS AT THE [facility] Last Admin: 09/24/21 09:41 Dose: 40 mg Sertraline HCl (Sertraline 100 Mg Tab) 100 mg PO QDAY [facility]S [facility]CLUDE 234 BEDS AT THE [facility] Last Admin: 09/24/21 09:42 Dose: 100 mg Results - Results Labs/Vitals: Laboratory Last Values WBC 4.6 K/mm3 (4.5-11.0) 09/23/21 10:29 RBC 4.70 M/mm3 (3.65-5.03) 09/23/21 10:29 Hgb 14.1 gm/dl (10.1-14.3) 09/23/21 10:29 Hct 42.1 % (30.3-42.9) 09/23/21 10:29 MCV 90 fl (79-97) 09/23/21 10:29 MCH 30 pg (28-32) 09/23/21 10:29 MCHC 33 % (30-34) 09/23/21 10:29 RDW 14.3 % (13.2-15.2) 09/23/21 10:29 Plt Count 167 K/mm3 (140-440) 09/23/21 10:29 Lymph % (Auto) 41.6 % (13.4-35.0) H 09/23/21 10:29 [place] % (Auto) 7.5 % (0.0-7.3) H 09/23/21 10:29 Eos % (Auto) 2.2 % (0.0-4.3) 09/23/21 10:29 Baso % (Auto) 0.7 % (0.0-1.8) 09/23/21 10:29 Lymph # (Auto) 1.9 K/mm3 (1.2-5.4) 09/23/21 10:29 [place] # (Auto) 0.3 K/mm3 (0.0-0.8) 09/23/21 10: Eos # (Auto) 0.1 K/mm3 (0.0-0.4) 09/23/21 10:29 Baso # (Auto) 0.0 K/mm3 (0.0-0.1) 09/23/21 10:29 Seg Neutrophils % 48.0 % (40.0-70.0) 09/23/21 10:29 Seg Neutrophils # 2.2 K/mm3 (1.8-7.7) 09/23/21 10:29 Sodium 136 mmol/L (137-145) L 09/23/21 10:29 Potassium 4.5 mmol/L (3.6-5.0) 09/23/21 10:29 Chloride 97.2 mmol/L (98-107) L 09/23/21 10:29 Carbon Dioxide 29 mmol/L (22-30) 09/23/21 10:29 Anion Gap 14 mmol/L 09/23/21 10:29 BUN 14 mg/dL (7-17) 09/23/21 10:29 Creatinine 0.6 mg/dL (0.6-1.2) 09/23/21 10:29 Estimated GFR > 60 ml/min 09/23/21 10:29 BUN/Creatinine Ratio 23 % 09/23/21 10:29 Glucose 211 mg/dL (65-100) H 09/23/21 10:29 POC Glucose 143 mg/dL (70-105) H 09/23/21 16:40 Hemoglobin A1c 7.3 % (4-6) H 09/23/21 10:29 Calcium 10.2 mg/dL (8.4-10.2) 09/23/21 10:29 Total Bilirubin 0.20 mg/dL (0.1-1.2) 09/23/21 10:29 AST 10 units/L (5-40) 09/23/21 10:29 ALT 10 units/L (7-56) 09/23/21 10:29 Alkaline Phosphatase 88 units/L (35-129) 09/23/21 10:29 Total Protein 7.2 g/dL (6.3-8.2) 09/23/21 10:29 Albumin 4.2 g/dL (3.9-5) 09/23/21 10:29 Albumin/Globulin Ratio 1.4 % 09/23/21 10:29 Triglycerides 78 mg/dL (2-149) 09/23/21 10:29 Cholesterol 157 mg/dL (50-199) 09/23/21 10:29 LDL Cholesterol Direct 59 mg/dL (50-130) 09/23/21 10:29 HDL Cholesterol 72 mg/dL (40-59) H 09/23/21 10:29 Cholesterol/HDL Ratio 2.18 % 09/23/21 10:29 TSH 0.882 mlU/mL (0.270-4.200) 09/23/21 10:29 Valproic Acid 79.0 ug/mL (50-100) 09/23/21 10:29 Hepatitis A IgM Ab Non-reactive (NonReactive) 09/23/21 10:29 Hep Bs Antigen Non-reactive (Negative) 09/23/21 10:29 Hep B Core IgM Ab Non-reactive (NonReactive) 09/23/21 10:29 Hepatitis C Antibody Non-reactive (NonReactive) 09/23/21 10:29 Last Vital Signs Temp 97.8 F 09/24/21 07:17 Pulse 83 09/24/21 07:17 Resp 18 09/24/21 07:17 BP 105/74 09/24/21 07:17 Pulse Ox 97 09/24/21 07:17
[2021-09-24] MEDS ORDERED: ARIPiprazole 5 MG TAB PO SCH (16:00)
[2021-09-24] MEDS: HALOPERIDOL 5 MG TAB PO SCH (21:06)
--- NOTE | 2021-09-25 08:16 | Progress Note ---
Subjective Date of service: 09/25/21 Principal diagnosis: Bipolar Disorder Subjective Comment: The patient was seen today. She is calm and cooperative. She presents as upbeat. She is smiling and gives me a thumbs up. The patient says she feels better when asked by giving thumbs up. She says she slept "so-so." The patient denies SI/HI or hallucinations. REVIEW OF SYSTEMS Unable to obtain MENTAL STATUS EXAMINATION Unable to Assessment (1) Bipolar Disorder Current Visit: Yes Status: Acute Treatment Plan Patient admitted for inpatient psychiatric evaluation, medication adjustment and close monitoring The patient's behavior, mood, sleep and appetite will be closely monitored. Patient enrolled in individual and group therapeutic sessions and encouraged to attend. Patient provided with a safe and structured environment. Patient's physical health needs will be addressed by the Hospitalist. Hospita list Consulted Labs including CBC, CMP, Lipid profile and Hemoglobin A1C levels ordered for baseline reference Social Assessment will be completed and the Tube Teller will work with patient and family to ensure a suitable and safe disposition Medication adjustment will be made as clinically indicated d/c Abilify 5mg po daily. The patient already takes Haldol Start Trazodone 50mg po qhs Usual Wellness Druze/Preservation: - Start Trazodone 50 mg po QHS & 50 mg po QHS PRN between 10 PM & 2 AM for insomnia - Start Melatonin 5 mg po QHS to promote circadian rhythm The patient agreed on the treatment plan, understood the risk, benefit, alternative treatment, potential consequence of no treatment, and gave informed consent. Estimated days: 7 Post hospital care: primary care provider, psychiatric provider Case staffed with Dr. Woodward Medications and Allergies Allergies Allergy/AdvReac Type Severity Reaction Status Date / Time aspirin Allergy Severe Anaphylaxis Verified 09/23/21 01:45 Penicillins Allergy Mild Itching Verified 09/23/21 01:45 tetracycline Allergy Itching Verified 09/23/21 01:45 Home Medications Medication Instructions Recorded Confirmed Last Taken Type AtorvaSTATin [Lipitor] 80 mg PO QHS 05/07/21 09/23/21 Unknown History Sitagliptin Phosphate [Januvia] 100 mg PO DAILY 05/07/21 09/23/21 Unknown History metFORMIN [Glucophage] 500 mg PO DAILY 05/07/21 09/23/21 Unknown History Apixaban [Eliquis] 5 mg PO Q12HR tablet 0609/23/21 09/22/21 20:[address] [Depakote Dr] 1,000 mg PO BID 30 Days #60 07/23/21 09/23/21 09/22/21 20:55 Rx Gabapentin 300 mg PO TID 30 Days #90 capsule 07/23/21 09/23/21 09/22/21 20:55 Rx Sertraline [Zoloft] 100 mg PO QDAY 30 Days #30 tablet 07/23/21 09/23/21 09/22/21 09:00 Rx Pantoprazole [Protonix] 40 mg PO QDAY 09/23/21 09/23/21 Unknown History haloperidoL [Haldol] 5 mg PO QHS 09/23/21 09/23/21 Unknown History levETIRAcetam [Keppra TAB] 1,000 mg PO BID 09/23/21 09/23/21 09/22/21 20:55 History Active Meds: Active Medications Apixaban (Apixaban 5 Mg Tab) 5 mg PO Q12HR [facility]; Protocol Last Admin: 09/24/21 21:05 Dose: 5 mg Aripiprazole (Aripiprazole 5 Mg Tab) 5 mg PO QDAY [facility] Last Admin: 09/24/21 16:57 Dose: 5 mg Atorvastatin Calcium (Atorvastatin 40 Mg Tab) 80 mg PO QHS [facility] Last Admin: 09/24/21 21:06 Dose: 80 mg Divalproex Sodium (Divalproex Dr 500 Mg Tab) 1,000 mg PO BID [facility] Last Admin: 09/24/21 21:05 Dose: 1,000 mg Gabapentin (Gabapentin 300 Mg Cap) 300 mg PO TID [facility] Last Admin: 09/24/21 20:05 Dose: 300 mg Haloperidol (Haloperidol 5 Mg Tab) 5 mg PO QHS [facility] Last Admin: 09/24/21 21:06 Dose: 5 mg Levetiracetam (Levetiracetam 500 Mg Tab) 1,000 mg PO BID [facility] Last Admin: 09/24/21 21:06 Dose: 1,000 mg Linagliptin (Linagliptin 5 Mg Tab) 5 mg PO QDAY [facility] Last Admin: 09/24/21 09:42 Dose: 5 mg Metformin HCl (Metformin 500 Mg Tab) 500 mg PO QAMDIAB [facility] Last Admin: 09/24/21 09:42 Dose: 500 mg Pantoprazole Sodium (Pantoprazole 40 Mg Tab) 40 mg PO QDAY [facility] Last Admin: 09/24/21 09:41 Dose: 40 mg Sertraline HCl (Sertraline 100 Mg Tab) 100 mg PO QDAY [facility] Last Admin: 09/24/21 09:42 Dose: 100 mg Results - Results Labs/Vitals: Laboratory Last Values WBC 4.6 K/mm3 (4.5-11.0) 09/23/21 10:29 RBC 4.70 M/mm3 (3.65-5.03) 09/23/21 10:29 Hgb 14.1 gm/dl (10.1-14.3) 09/23/21 10:29 Hct 42.1 % (30.3-42.9) 09/23/21 10:29 MCV 90 fl (79-97) 09/23/21 10:29 MCH 30 pg (28-32) 09/23/21 10:29 MCHC 33 % (30-34) 09/23/21 10:29 RDW 14.3 % (13.2-15.2) 09/23/21 10:29 Plt Count 167 K/mm3 (140-440) 09/23/21 10:29 Lymph % (Auto) 41.6 % (13.4-35.0) H 09/23/21 10:29 [place] % (Auto) 7.5 % (0.0-7.3) H 09/23/21 10:29 Eos % (Auto) 2.2 % (0.0-4.3) 09/23/21 10:29 Baso % (Auto) 0.7 % (0.0-1.8) 09/23/21 10:29 Lymph # (Auto) 1.9 K/mm3 (1.2-5.4) 09/23/21 10:29 [place] # (Auto) 0.3 K/mm3 (0.0-0.8) 09/23/21 10:29 Eos # (Auto) 0.1 K/mm3 (0.0-0.4) 09/23/21 10:29 Baso # (Auto) 0.0 K/mm3 (0.0-0.1) 09/23/21 10:29 Seg Neutrophils % 48.0 % (40.0-70.0) 09/23/21 10:29 Seg Neutrophils # 2.2 K/mm3 (1.8-7.7) 09/23/21 10:29 Sodium 136 mmol/L (137-145) L 09/23/21 10:29 Potassium 4.5 mmol/L (3.6-5.0) 09/23/21 10:29 Chloride 97.2 mmol/L (98-107) L 09/23/21 10:29 Carbon Dioxide 29 mmol/L (22-30) 09/23/21 10:29 Anion Gap 14 mmol/L 09/23/21 10:29 BUN 14 mg/dL (7-17) 09/23/21 10:29 Creatinine 0.6 mg/dL (0.6-1.2) 09/23/21 10:29 Estimated GFR > 60 ml/min 09/23/21 10:29 BUN/Creatinine Ratio 23 % 09/23/21 10:29 Glucose 211 mg/dL (65-100) H 09/23/21 10:29 POC Glucose 123 mg/dL (70-105) H 09/25/21 06:13 Hemoglobin A1c 7.3 % (4-6) H 09/23/21 10:29 Calcium 10.2 mg/dL (8.4-10.2) 09/23/21 10:29 Total Bilirubin 0.20 mg/dL (0.1-1.2) 09/23/21 10:29 AST 10 units/L (5-40) 09/23/21 10:29 ALT 10 units/L (7-56) 09/23/21 10:29 Alkaline Phosphatase 88 units/L (35-129) 09/23/21 10:29 Total Protein 7.2 g/dL (6.3-8.2) 09/23/21 10:29 Albumin 4.2 g/dL (3.9-5) 09/23/21 10:29 Albumin/Globulin Ratio 1.4 % 09/23/21 10:29 Triglycerides 78 mg/dL (2-149) 09/23/21 10:29 Cholesterol 157 mg/dL (50-199) 09/23/21 10:29 LDL Cholesterol Direct 59 mg/dL (50-130) 09/23/21 10:29 HDL Cholesterol 72 mg/dL (40-59) H 09/23/21 10:29 Cholesterol/HDL Ratio 2.18 % 09/23/21 10:29 TSH 0.882 mlU/mL (0.270-4.200) 09/23/21 10:29 Valproic Acid 79.0 ug/mL (50-100) 09/23/21 10:29 Hepatitis A IgM Ab Non-reactive (NonReactive) 09/23/21 10:29 Hep Bs Antigen Non-reactive (Negative) 09/23/21 10: Hep B Core IgM Ab Non-reactive (NonReactive) 09/23/21 10:29 Hepatitis C Antibody Non-reactive (NonReactive) 09/23/21 10:29 Last Vital Signs Temp 98.4 F 09/24/21 19:36 Pulse 75 09/24/21 19:36 Resp 18 09/24/21 19:36 BP 108/71 09/24/21 19:36 Pulse Ox 100 09/24/21 19:36
[2021-09-25] MEDS: DIVALPROEX DR 500 MG TAB PO SCH ×2 (09:43→22:27)
[2021-09-25] MEDS: SERTRALINE 100 MG TAB PO SCH (09:43)
[2021-09-25] MEDS: metFORMIN 500 MG TAB PO SCH (09:43)
[2021-09-25] MEDS: levETIRAcetam 500 MG TAB PO SCH ×2 (09:43→22:27)
[2021-09-25] MEDS: GABAPENTIN 300 MG CAP PO SCH ×3 (09:43→22:28)
[2021-09-25] MEDS: LINAGLIPTIN 5 MG TAB PO SCH (09:44)
[2021-09-25] MEDS: APIXABAN 5 MG TAB PO SCH ×2 (09:44→22:29)
[2021-09-25] MEDS: PANTOPRAZOLE 40 MG TAB PO SCH (10:44)
[2021-09-25] MEDS: traZODone 50 MG TAB PO SCH (22:27)
[2021-09-25] MEDS: HALOPERIDOL 5 MG TAB PO SCH (22:27)
[2021-09-26] MEDS: GABAPENTIN 300 MG CAP PO SCH ×3 (09:25→20:29)
[2021-09-26] MEDS: APIXABAN 5 MG TAB PO SCH ×2 (09:25→21:30)
[2021-09-26] MEDS: PANTOPRAZOLE 40 MG TAB PO SCH (09:26)
[2021-09-26] MEDS: metFORMIN 500 MG TAB PO SCH (09:26)
[2021-09-26] MEDS: LINAGLIPTIN 5 MG TAB PO SCH (09:26)
[2021-09-26] MEDS: DIVALPROEX DR 500 MG TAB PO SCH ×2 (09:26→21:29)
[2021-09-26] MEDS: SERTRALINE 100 MG TAB PO SCH (09:26)
[2021-09-26] MEDS: levETIRAcetam 500 MG TAB PO SCH ×2 (09:26→21:29)
--- NOTE | 2021-09-26 10:06 | Progress Note ---
Subjective Date of service: 09/26/21 Subjective Comment: 09/26: The patient was seen today. She presents with selective mutism, gesturing. She endorses depression, rates as 5/10. She reports having intermittent AVH, gestured that voice is telling her to cut herself. 09/25:The patient was seen today. She is calm and cooperative. She presents as upbeat. She is smiling and gives me a thumbs up. The patient says she feels better when asked by giving thumbs up. She says she slept "so-so." The patient denies SI/HI or hallucinations. 09/24:The patient was seen today. She is calm and cooperative. She patient has a hx of prior stroke. She is nonverbal. She communicates by thumbs up. The patient says she feels okay. She says she is hearing voices telling her to harm herself. She demonstrates by making punching motions toward her face. She says she did not sleep well. She give me a thumbs down when asked. She says she was depressed by a thumbs up. The patient says she did not sleep well. I asked was she SI/HI. She shrugs her shoulder. REVIEW OF SYSTEMS Unable to obtain MENTAL STATUS EXAMINATION Unable to Assessment (1) Bipolar Disorder Current Visit: Yes Status: Acute Treatment Plan Patient admitted for inpatient psychiatric evaluation, medication adjustment and close monitoring The patient's behavior, mood, sleep and appetite will be closely monitored. Patient enrolled in individual and group therapeutic sessions and encouraged to attend. Patient provided with a safe and structured environment. Patient's physical health needs will be addressed by the Hospitalist. Hospitalist Consulted Labs including CBC, CMP, Lipid profile and Hemoglobin A1C levels ordered for baseline reference Social Assessment will be completed and the Radiographer Mammographer will work with patient and family to ensure a suitable and safe disposition Medication adjustment will be made as clinically indicated Continue home meds Usual Wellness Worship/Preservation: - Start Trazodone 50 mg po QHS & 50 mg po QHS PRN between 10 PM & 2 AM for insomnia - Start Melatonin 5 mg po QHS to promote circadian rhythm The patient agreed on the treatment plan, understood the risk, benefit, alternative treatment, potential consequence of no treatment, and gave informed consent. Estimated days: Post hospital care: primary care provider, psychiatric provider Case staffed with Dr. Woodward Medications and Allergies Medications and Allergies Allergies Allergy/AdvReac Type Severity Reaction Status Date / Time aspirin Allergy Severe Anaphylaxis Verified 09/23/21 01:45 Penicillins Allergy Mild Itching Verified 09/23/21 01:45 tetracycline Allergy Itching Verified 09/23/21 01:45 Home Medications Medication Instructions Recorded Confirmed Last Taken Type AtorvaSTATin [Lipitor] 80 mg PO QHS 05/07/21 09/23/21 Unknown History Sitagliptin Phosphate [Januvia] 100 mg PO DAILY 05/07/21 09/23/21 Unknown History metFORMIN [Glucophage] 500 mg PO DAILY 05/07/21 09/23/21 Unknown History Apixaban [Eliquis] 5 mg PO Q12HR tablet 07/23/21 09/23/21 09/22/21 20:[address] [Yong Schwartz] 1,000 mg PO BID 30 Days #60 07/23/21 09/23/21 09/22/21 20:55 Rx Gabapentin 300 mg PO TID 30 Days #90 capsule 07/23/21 09/23/21 09/22/21 20:55 Rx Sertraline [Zoloft] 100 mg PO QDAY 30 Days #30 tablet 07/23/21 09/23/21 09/22/21 09:00 Rx Pantoprazole [Protonix] 40 mg PO QDAY 09/23/21 09/23/21 Unknown History haloperidoL [Haldol] 5 mg PO QHS 09/23/21 09/23/21 Unknown History levETIRAcetam [Keppra TAB] 1,000 mg PO BID 09/23/21 09/23/21 09/22/21 20:55 History Active Meds: Active Medications Apixaban (Apixaban 5 Mg Tab) 5 mg PO Q12HR [facility]; Protocol Last Admin: 09/25/21 22:29 Dose: 5 mg Atorvastatin Calcium (Atorvastatin 40 Mg Tab) 80 mg PO QHS [facility] Last Admin: 09/25/21 22:27 Dose: 80 mg Divalproex Sodium (Divalproex Dr 500 Mg Tab) 1,000 mg PO BID [facility] Last Admin: 09/26/21 09:26 Dose: 1,000 mg Gabapentin (Gabapentin 300 Mg Cap) 300 mg PO TID [facility] Last Admin: 09/26/21 09:25 Dose: 300 mg Haloperidol (Haloperidol 5 Mg Tab) 5 mg PO QHS [facility] Last Admin: 09/25/21 22:27 Dose: 5 mg Levetiracetam (Levetiracetam 500 Mg Tab) 1,000 mg PO BID [facility] Last Admin: 09/26/21 09:26 Dose: 1,000 mg Linagliptin (Linagliptin 5 Mg Tab) 5 mg PO QDAY [facility] Last Admin: 09/26/21 09:26 Dose: 5 mg Metformin HCl (Metformin 500 Mg Tab) 500 mg PO QAMDIAB [facility] Last Admin: 09/26/21 09:26 Dose: 500 mg Pantoprazole Sodium (Pantoprazole 40 Mg Tab) 40 mg PO QDAY [facility] Last Admin: 09/26/21 09:26 Dose: 40 mg Sertraline HCl (Sertraline 100 Mg Tab) 100 mg PO QDAY [facility] Last Admin: 09/26/21 09:26 Dose: 100 mg Trazodone HCl (Trazodone 50 Mg Tab) 50 mg PO QHS [facility] Last Admin: 09/25/21 22:27 Dose: 50 mg Results - Results Labs/Vitals: Laboratory Last Values WBC 4.6 K/mm3 (4.5-11.0) 09/23/21 10:29 RBC 4.70 M/mm3 (3.65-5.03) 09/23/21 10:29 Hgb 14.1 gm/dl (10.1-14.3) 09/23/21 10:29 Hct 42.1 % (30.3-42.9) 09/23/21 10:29 MCV 90 fl (79-97) 09/23/21 10:29 MCH 30 pg (28-32) 09/23/21 10:29 MCHC 33 % (30-34) 09/23/21 10:29 RDW 14.3 % (13.2-15.2) 09/23/21 10:29 Plt Count 167 K/mm3 (140-440) 09/23/21 10:29 Lymph % (Auto) 41.6 % (13.4-35.0) H 09/23/21 10:29 [place] % (Auto) 7.5 % (0.0-7.3) H 09/23/21 10:29 Eos % (Auto) 2.2 % (0.0-4.3) 09/23/21 10:29 Baso % (Auto) 0.7 % (0.0-1.8) 09/23/21 10:29 Lymph # (Auto) 1.9 K/mm3 (1.2-5.4) 09/23/21 10:29 [place] # (Auto) 0.3 K/mm3 (0.0-0.8) 09/23/21 10:29 Eos # (Auto) 0.1 K/mm3 (0.0-0.4) 09/23/21 10:29 Baso # (Auto) 0.0 K/mm3 (0.0-0.1) 09/23/21 10:29 Seg Neutrophils % 48.0 % (40.0-70.0) 09/23/21 10: Seg Neutrophils # 2.2 K/mm3 (1.8-7.7) 09/23/21 10:29 Sodium 136 mmol/L (137-145) L 09/23/21 10:29 Potassium 4.5 mmol/L (3.6-5.0) 09/23/21 10:29 Chloride 97.2 mmol/L (98-107) L 09/23/21 10:29 Carbon Dioxide 29 mmol/L (22-30) 09/23/21 10:29 Anion Gap 14 mmol/L 09/23/21 10:29 BUN 14 mg/dL (7-17) 09/23/21 10:29 Creatinine 0.6 mg/dL (0.6-1.2) 09/23/21 10:29 Estimated GFR > 60 ml/min 09/23/21 10:29 BUN/Creatinine Ratio 23 % 09/23/21 10:29 Glucose 211 mg/dL (65-100) H 09/23/21 10:29 POC Glucose 142 mg/dL (70-105) H 09/25/21 19:49 Hemoglobin A1c 7.3 % (4-6) H 09/23/21 10:29 Calcium 10.2 mg/dL (8.4-10.2) 09/23/21 10:29 Total Bilirubin 0.20 mg/dL (0.1-1.2) 09/23/21 10:29 AST 10 units/L (5-40) 09/23/21 10:29 ALT 10 units/L (7-56) 09/23/21 10:29 Alkaline Phosphatase 88 units/L (35-129) 09/23/21 10:29 Total Protein 7.2 g/dL (6.3-8.2) 09/23/21 10:29 Albumin 4.2 g/dL (3.9-5) 09/23/21 10:29 Albumin/Globulin Ratio 1.4 % 09/23/21 10:29 Triglycerides 78 mg/dL (2-149) 09/23/21 10:29 Cholesterol 157 mg/dL (50-199) 09/23/21 10:29 LDL Cholesterol Direct 59 mg/dL (50-130) 09/23/21 10:29 HDL Cholesterol 72 mg/dL (40-59) H 09/23/21 10:29 Cholesterol/HDL Ratio 2.18 % 09/23/21 10:29 TSH 0.882 mlU/mL (0.270-4.200) 09/23/21 10:29 Valproic Acid 79.0 ug/mL (50-100) 09/23/21 10:29 Hepatitis A IgM Ab Non-reactive (NonReactive) 09/23/21 10:29 Hep Bs Antigen Non-reactive (Negative) 09/23/21 10:29 Hep B Core IgM Ab Non-reactive (NonReactive) 09/23/21 10:29 Hepatitis C Antibody Non-reactive (NonReactive) 09/23/21 10:29 Last Vital Signs Temp 97.7 F 09/26/21 09:12 Pulse 77 09/26/21 09:12 Resp 18 09/26/21 09:12 BP 110/67 09/26/21 09:12 Pulse Ox 94 09/26/21 09:12
[2021-09-26] MEDS ORDERED: ACETAMINOPHEN 325 MG TAB PO PRN (20:56)
[2021-09-26] MEDS: HALOPERIDOL 5 MG TAB PO SCH (21:29)
[2021-09-26] MEDS: traZODone 50 MG TAB PO SCH (21:30)
[2021-09-27] MEDS: DIVALPROEX DR 500 MG TAB PO SCH ×3 (08:37→21:03)
[2021-09-27] MEDS: SERTRALINE 100 MG TAB PO SCH ×2 (08:37→10:00)
[2021-09-27] MEDS: PANTOPRAZOLE 40 MG TAB PO SCH ×2 (08:37→10:00)
[2021-09-27] MEDS: levETIRAcetam 500 MG TAB PO SCH ×3 (08:38→21:05)
[2021-09-27] MEDS: metFORMIN 500 MG TAB PO SCH (08:38)
[2021-09-27] MEDS: APIXABAN 5 MG TAB PO SCH ×3 (08:38→21:04)
[2021-09-27] MEDS: GABAPENTIN 300 MG CAP PO SCH ×3 (08:38→20:58)
[2021-09-27] MEDS: LINAGLIPTIN 5 MG TAB PO SCH ×2 (08:38→10:00)
--- NOTE | 2021-09-27 10:05 | Progress Note ---
Subjective Date of service: 09/27/21 Principal diagnosis: Bipolar Disorder Subjective Comment: 09/27:The patient was seen today. She presents in good spirits. the patient is verbal today. She reports doing better " I feel better." She denies any current suicidal/homicidal ideation and continues to have intermittent AH. 09/26: The patient was seen today. She presents with selective mutism, gesturing. She endorses depression, rates as 5/10. She reports having intermi ttent AVH, gestured that voice is telling her to cut herself. 09/25:The patient was seen today. She is calm and cooperative. She presents as upbeat. She is smiling and gives me a thumbs up. The patient says she feels better when asked by giving thumbs up. She says she slept "so-so." The patient denies SI/HI or hallucinations. 09/24:The patient was seen today. She is calm and cooperative. She patient has a hx of prior stroke. She is nonverbal. She communicates by thumbs up. The patient says she feels okay. She says she is hearing voices telling her to harm herself. She demonstrates by making punching motions toward her face. She says she did not sleep well. She give me a thumbs down when asked. She says she was depressed by a thumbs up. The patient says she did not sleep well. I asked was she SI/HI. She shrugs her shoulder. REVIEW OF SYSTEMS Unable to obtain MENTAL STATUS EXAMINATION Unable to Assessment (1) Bipolar Disorder Current Visit: Yes Status: Acute Treatment Plan Patient admitted for inpatient psychiatric evaluation, medication adjustment and close monitoring The patient's behavior, mood, sleep and appetite will be closely monitored. Patient enrolled in individual and group therapeutic sessions and encouraged to attend. Patient provided with a safe and structured environment. Patient's physical health needs will be addressed by the Hospitalist. Hospitalist Consulted Labs including CBC, CMP, Lipid profile and Hemoglobin A1C levels ordered for baseline reference Social Assessment will be completed and the Sheriff Deputy will work with patient and family to ensure a suitable and safe disposition Medication adjustment will be made as clinically indicated Continue home meds Usual Wellness Advent/Preservation: - Start Trazodone 50 mg po QHS & 50 mg po QHS PRN between 10 PM & 2 AM for insomnia - Start Melatonin 5 mg po QHS to promote circadian rhythm The patient agreed on the treatment plan, understood the risk, benefit, alternative treatment, potential consequence of no treatment, and gave informed consent. Estimated days: Post hospital care: primary care provider, psychiatric provider Case staffed with Dr. Woodward Medications and Allergies Medications and Allergies Allergies Allergy/AdvReac Type Severity Reaction Status Date / Time aspirin Allergy Severe Anaphylaxis Verified 09/23/21 01:45 Penicillins Allergy Mild Itching Verified 09/23/21 01:45 tetracycline Allergy Itching Verified 09/23/21 01:45 Home Medications Medication Instructions Recorded Confirmed Last Taken Type AtorvaSTATin [Lipitor] 80 mg PO QHS 05/07/21 09/23/21 Unknown History Sitagliptin Phosphate [Januvia] 100 mg PO DAILY 05/07/21 09/23/21 Unknown History metFORMIN [Glucophage] 500 mg PO DAILY 05/07/21 09/23/21 Unknown History Apixaban [Eliquis] 5 mg PO Q12HR tablet 07/23/21 09/23/21 09/22/21 20:55 Rx Divalproex [Yong Schwartz] 1,000 mg PO BID 30 Days #60 07/23/21 09/23/21 09/22/21 20:55 Rx Gabapentin 300 mg PO TID 30 Days #90 capsule 07/23/21 09/23/21 09/22/21 20:55 Rx Sertraline [Zoloft] 100 mg PO QDAY 30 Days #30 tablet 07/23/21 09/23/21 09/22/21 09:00 Rx Pantoprazole [Protonix] 40 mg PO QDAY 09/23/21 09/23/21 Unknown History haloperidoL [Haldol] 5 mg PO QHS 09/23/21 09/23/21 Unknown History levETIRAcetam [Keppra TAB] 1,000 mg PO BID 09/23/21 09/23/21 09/22/21 20:55 History Active Meds: Active Medications Acetaminophen (Acetaminophen 325 Mg Tab) 650 mg PO Q6H PRN PRN Reason: Pain, Mild (1-3) Last Admin: 09/26/21 21:16 Dose: 650 mg Apixaban (Apixaban 5 Mg Tab) 5 mg PO Q12HR [facility]; Protocol Last Admin: 09/27/21 08:38 Dose: 5 mg Atorvastatin Calcium (Atorvastatin 40 Mg Tab) 80 mg PO QHS [facility] Last Admin: 09/26/21 21:30 Dose: 80 mg Divalproex Sodium (Divalproex Dr 500 Mg Tab) 1,000 mg PO BID [facility] Last Admin: 09/27/21 08:37 Dose: 1,000 mg Gabapentin (Gabapentin 300 Mg Cap) 300 mg PO TID [facility] Last Admin: 09/27/21 08:38 Dose: 300 mg Haloperidol (Haloperidol 5 Mg Tab) 5 mg PO QHS [facility] Last Admin: 09/26/21 21:29 Dose: 5 mg Levetiracetam (Levetiracetam 500 Mg Tab) 1,000 mg PO BID [facility] Last Admin: 09/27/21 08:38 Dose: 1,000 mg Linagliptin (Linagliptin 5 Mg Tab) 5 mg PO QDAY [facility] Last Admin: 09/27/21 08:38 Dose: 5 mg Metformin HCl (Metformin 500 Mg Tab) 500 mg PO QAMDIAB [facility] Last Admin: 09/27/21 08:38 Dose: 500 mg Pantoprazole Sodium (Pantoprazole 40 Mg Tab) 40 mg PO QDAY [facility] Last Admin: 09/27/21 08:37 Dose: 40 mg Sertraline HCl (Sertraline 100 Mg Tab) 100 mg PO QDAY [facility] Last Admin: 09/27/21 08:37 Dose: 100 mg Trazodone HCl (Trazodone 50 Mg Tab) 50 mg PO QHS [facility] Last Admin: 09/26/21 21:30 Dose: 50 mg Results - Results Labs/Vitals: Laboratory Last Values WBC 4.6 K/mm3 (4.5-11.0) 09/23/21 10:29 RBC 4.70 M/mm3 (3.65-5.03) 09/23/21 10:29 Hgb 14.1 gm/dl (10.1-14.3) 09/23/21 10:29 Hct 42.1 % (30.3-42.9) 09/23/21 10:29 MCV 90 fl (79-97) 09/23/21 10:29 MCH 30 pg (28-32) 09/23/21 10:29 MCHC 33 % (30-34) 09/23/21 10:29 RDW 14.3 % (13.2-15.2) 09/23/21 10:29 Plt Count 167 K/mm3 (140-440) 09/23/21 10:29 Lymph % (Auto) 41.6 % (13.4-35.0) H 09/23/21 10:29 [place] % (Auto) 7.5 % (0.0-7.3) H 09/23/21 10:29 Eos % (Auto) 2.2 % (0.0-4.3) 09/23/21 10:29 Baso % (Auto) 0.7 % (0.0-1.8) 09/23/21 10:29 Lymph # (Auto) 1.9 K/mm3 (1.2-5.4) 09/23/21 10:29 [place] # (Auto) 0.3 K/mm3 (0.0-0.8) 09/23/21 10: Eos # (Auto) 0.1 K/mm3 (0.0-0.4) 09/23/21 10:29 Baso # (Auto) 0.0 K/mm3 (0.0-0.1) 09/23/21 10:29 Seg Neutrophils % 48.0 % (40.0-70.0) 09/23/21 10: Seg Neutrophils # 2.2 K/mm3 (1.8-7.7) 09/23/21 10:29 Sodium 136 mmol/L (137-145) L 09/23/21 10:29 Potassium 4.5 mmol/L (3.6-5.0) 09/23/21 10:29 Chloride 97.2 mmol/L (98-107) L 09/23/21 10:29 Carbon Dioxide 29 mmol/L (22-30) 09/23/21 10:29 Anion Gap 14 mmol/L 09/23/21 10:29 BUN 14 mg/dL (7-17) 09/23/21 10:29 Creatinine 0.6 mg/dL (0.6-1.2) 09/23/21 10:29 Estimated GFR > 60 ml/min 09/23/21 10:29 BUN/Creatinine Ratio 23 % 09/23/21 10:29 Glucose 211 mg/dL (65-100) H 09/23/21 10:29 POC Glucose 176 mg/dL (70-105) H 09/27/21 06:33 Hemoglobin A1c 7.3 % (4-6) H 09/23/21 10:29 Calcium 10.2 mg/dL (8.4-10.2) 09/23/21 10:29 Total Bilirubin 0.20 mg/dL (0.1-1.2) 09/23/21 10:29 AST 10 units/L (5-40) 09/23/21 10:29 ALT 10 units/L (7-56) 09/23/21 10:29 Alkaline Phosphatase 88 units/L (35-129) 09/23/21 10:29 Total Protein 7.2 g/dL (6.3-8.2) 09/23/21 10:29 Albumin 4.2 g/dL (3.9-5) 09/23/21 10: Albumin/Globulin Ratio 1.4 % 09/23/21 10:29 Triglycerides 78 mg/dL (2-149) 09/23/21 10:29 Cholesterol 157 mg/dL (50-199) 09/23/21 10:29 LDL Cholesterol Direct 59 mg/dL (50-130) 09/23/21 10:29 HDL Cholesterol 72 mg/dL (40-59) H 09/23/21 10:29 Cholesterol/HDL Ratio 2.18 % 09/23/21 10:29 TSH 0.882 mlU/mL (0.270-4.200) 09/23/21 10:29 Valproic Acid 112.8 ug/mL (50-100) H 09/27/21 06:51 Hepatitis A IgM Ab Non-reactive (NonReactive) 09/23/21 10:29 Hep Bs Antigen Non-reactive (Negative) 09/23/21 10:29 Hep B Core IgM Ab Non-reactive (NonReactive) 09/23/21 10:29 Hepatitis C Antibody Non-reactive (NonReactive) 09/23/21 10:29 Last Vital Signs Temp 98.5 F 09/27/21 07:31 Pulse 81 09/27/21 07:31 Resp 16 09/27/21 07:31 BP 102/64 09/27/21 07:31 Pulse Ox 100 09/27/21 07:31
--- NOTE | 2021-09-27 20:44 | Progress Note ---
Assessment and Plan - Patient Problems (1) Bipolar disorder Current Visit: No Status: Acute Plan to address problem: Continue medical management, supportive care. (2) COPD (chronic obstructive pulmonary disease) Current Visit: No Status: Acute Plan to address problem: No acute exacerbation at this time, continue medical management, supplemental oxygen as clinically indicated. (3) Diabetes Current Visit: No Status: Acute Plan to address problem: Consistent carbohydrate diet, Accu-Chek, insulin protocol, hypoglycemia protocol. (4) Hypertension Current Visit: No Status: Acute Qualifiers: Hypertension type: primary hypertension Qualified Code(s): I10 - Essential (primary) hypertension Plan to address problem: Monitor blood pressure every shift, continue medical management. (5) Osteoarthritis Current Visit: No Status: Acute Plan to address problem: Pain control, supportive care, continue medical management. (6) Pulmonary embolism Current Visit: No Status: Acute Plan to address problem: continue therapeutic anticoagulation, supportive care. (7) Seizure disorder Current Visit: No Status: Acute Plan to address problem: Continue current therapy, supportive care, no seizure activity at this time. (8) Advance care planning Current Visit: No Status: Acute Plan to address problem: Disease education done, care plan discussed, diagnoses discussed, prognosis discussed, patient is full code. Patient knowledges understanding and agreement with care plan, +30 minutes. (9) Preventative health care Current Visit: No Status: Acute Plan to address problem: Patient counseled regarding outpatient follow-up with primary care physician for all age and risk factor appropriate screening test. +30 minutes. History Interval history: 56 YO Female HTN, OA, Seizure Disorder, COPD, HLD, DM, PE on therapeutic anticoagulation with Eliquis, Schizophrenia, Bipolar Disorder admitted to [facility] for psychiatric stabilization. Consult placed by Dr. Kilgore for medical management. Pt seen and evaluated in the recreation room. Pt resting comfortably. Patient appears to be at baseline level of cognition and function. Hospitalist Physical - Constitutional Vitals: Temp Pulse Resp BP Pulse Ox 98.5 F 81 16 102/64 100 09/27/21 07:31 09/27/21 07:31 09/27/21 07:31 09/27/21 07:31 09/27/21 07:31 General appearance: Present: mild distress - EENT Eyes: Present: PERRL ENT: hearing intact - Neck Neck: Present: supple - Respiratory Respiratory effort: normal Respiratory: bilateral: diminished - Cardiovascular Rhythm: regular Heart Sounds: Present: S1 & S2 - Extremities Extremities: no ischemia Peripheral Pulses: within normal limits - Abdominal General gastrointestinal: soft, non-tender, non-distended - Integumentary Integumentary: Present: clear, dry - Psychiatric Psychiatric: cooperative - Neurologic Neurologic: CNII-XII intact Results - Labs CBC & Chem 7: 09/23/21 10:29 09/23/21 10:29 Labs: Laboratory Last Values WBC 4.6 K/mm3 (4.5-11.0) 09/23/21 10:29 RBC 4.70 M/mm3 (3.65-5.03) 09/23/21 10:29 Hgb 14.1 gm/dl (10.1-14.3) 09/23/21 10: Hct 42.1 % (30.3-42.9) 09/23/21 10:29 MCV 90 fl (79-97) 09/23/21 10:29 MCH 30 pg (28-32) 09/23/21 10:29 MCHC 33 % (30-34) 09/23/21 10:29 RDW 14.3 % (13.2-15.2) 09/23/21 10:29 Plt Count 167 K/mm3 (140-440) 09/23/21 10:29 Lymph % (Auto) 41.6 % (13.4-35.0) H 09/23/21 10:29 [place] % (Auto) 7.5 % (0.0-7.3) H 09/23/21 10:29 Eos % (Auto) 2.2 % (0.0-4.3) 09/23/21 10:29 Baso % (Auto) 0.7 % (0.0-1.8) 09/23/21 10: Lymph # (Auto) 1.9 K/mm3 (1.2-5.4) 09/23/21 10: [place] # (Auto) 0.3 K/mm3 (0.0-0.8) 09/23/21 10:29 Eos # (Auto) 0.1 K/mm3 (0.0-0.4) 09/23/21 10:29 Baso # (Auto) 0.0 K/mm3 (0.0-0.1) 09/23/21 10:29 Seg Neutrophils % 48.0 % (40.0-70.0) 09/23/21 10:29 Seg Neutrophils # 2.2 K/mm3 (1.8-7.7) 09/23/21 10:29 Sodium 136 mmol/L (137-145) L 09/23/21 10:29 Potassium 4.5 mmol/L (3.6-5.0) 09/23/21 10:29 Chloride 97.2 mmol/L (98-107) L 09/23/21 10:29 Carbon Dioxide 29 mmol/L (22-30) 09/23/21 10:29 Anion Gap 14 mmol/L 09/23/21 10:29 BUN 14 mg/dL (7-17) 09/23/21 10:29 Creatinine 0.6 mg/dL (0.6-1.2) 09/23/21 10:29 Estimated GFR > 60 ml/min 09/23/21 10:29 BUN/Creatinine Ratio 23 % 09/23/21 10:29 Glucose 211 mg/dL (65-100) H 09/23/21 10:29 POC Glucose 176 mg/dL (70-105) H 09/27/21 06:33 Hemoglobin A1c 7.3 % (4-6) H 09/23/21 10:29 Calcium 10.2 mg/dL (8.4-10.2) 09/23/21 10:29 Total Bilirubin 0.20 mg/dL (0.1-1.2) 09/23/21 10:29 AST 10 units/L (5-40) 09/23/21 10:29 ALT 10 units/L (7-56) 09/23/21 10:29 Alkaline Phosphatase 88 units/L (35-129) 09/23/21 10:29 Total Protein 7.2 g/dL (6.3-8.2) 09/23/21 10:29 Albumin 4.2 g/dL (3.9-5) 09/23/21 10:29 Albumin/Globulin Ratio 1.4 % 09/23/21 10:29 Triglycerides 78 mg/dL (2-149) 09/23/21 10:29 Cholesterol 157 mg/dL (50-199) 09/23/21 10:29 LDL Cholesterol Direct 59 mg/dL (50-130) 09/23/21 10:29 HDL Cholesterol 72 mg/dL (40-59) H 09/23/21 10:29 Cholesterol/HDL Ratio 2.18 % 09/23/21 10:29 TSH 0.882 mlU/mL (0.270-4.200) 09/23/21 10:29 Valproic Acid 112.8 ug/mL (50-100) H 09/27/21 06:51 Hepatitis A IgM Ab Non-reactive (NonReactive) 09/23/21 10:29 Hep Bs Antigen Non-reactive (Negative) 09/23/21 10:29 Hep B Core IgM Ab Non-reactive (NonReactive) 09/23/21 10:29 Hepatitis C Antibody Non-reactive (NonReactive) 09/23/21 10:29 [place]/IV: Voiding Method Toilet Active Medications - Current Medications Current Medications: Generic Name Dose Route Start Last Admin Trade Name Freq PRN Reason Stop Dose Admin Acetaminophen 650 mg 09/26/21 20:56 09/26/21 21:16 Acetaminophen 325 Mg Tab PO 650 mg Q6H PRN Administration Pain, Mild (1-3) Apixaban 5 mg 09/23/21 11:00 09/27/21 10:00 Apixaban 5 Mg Tab PO Not Given Q12HR [facility] Protocol Atorvastatin Calcium 80 mg 09/23/21 22:00 09/26/21 21:30 Atorvastatin 40 Mg Tab PO 80 mg QHS [facility] Administration Divalproex Sodium 1,000 mg 09/23/21 11:00 09/27/21 10:[address] 500 Mg Tab PO Not Given BID [facility] Gabapentin 300 mg 09/23/21 14:00 09/27/21 14:45 Gabapentin 300 Mg Cap PO 300 mg TID [facility] Administration Haloperidol 5 mg 09/23/21 22:00 09/26/21 21:29 Haloperidol 5 Mg Tab PO 5 mg QHS [facility] Administration Levetiracetam 1,000 mg 09/23/21 11:00 09/27/21 10:00 Levetiracetam 500 Mg Tab PO Not Given BID [facility] Linagliptin 5 mg 09/23/21 12:00 09/27/21 10:00 Linagliptin 5 Mg Tab PO Not Given QDAY [facility] Metformin HCl 500 mg 09/23/21 11:00 09/27/21 08:38 Metformin 500 Mg Tab PO 500 mg QAMDIAB [facility] Administration Pantoprazole Sodium 40 mg 09/23/21 11:00 09/27/21 10:00 Pantoprazole 40 Mg Tab PO Not Given QDAY [facility] Sertraline HCl 100 mg 09/23/21 10:00 09/27/21 10:00 Sertraline 100 Mg Tab PO Not Given QDAY [facility] Trazodone HCl 50 mg 09/25/21 22:00 09/26/21 21:30 Trazodone 50 Mg Tab PO 50 mg QHS [facility] Administration
[2021-09-27] MEDS: traZODone 50 MG TAB PO SCH (21:04)
[2021-09-27] MEDS: HALOPERIDOL 5 MG TAB PO SCH (21:04)
[2021-09-28] MEDS: GABAPENTIN 300 MG CAP PO SCH ×3 (08:20→20:13)
[2021-09-28] MEDS: DIVALPROEX DR 500 MG TAB PO SCH ×3 (08:20→21:12)
[2021-09-28] MEDS: APIXABAN 5 MG TAB PO SCH ×3 (08:20→21:12)
[2021-09-28] MEDS: SERTRALINE 100 MG TAB PO SCH ×2 (08:20→10:36)
[2021-09-28] MEDS: metFORMIN 500 MG TAB PO SCH (08:21)
[2021-09-28] MEDS: levETIRAcetam 500 MG TAB PO SCH ×3 (08:21→21:13)
[2021-09-28] MEDS: LINAGLIPTIN 5 MG TAB PO SCH ×2 (08:21→10:36)
[2021-09-28] MEDS: PANTOPRAZOLE 40 MG TAB PO SCH ×2 (08:21→10:36)
--- NOTE | 2021-09-28 08:58 | Progress Note ---
Subjective Date of service: 09/28/21 Principal diagnosis: Bipolar Disorder Subjective Comment: 09/28:The patient was seen today. She states she is ok. She reports sleep and appetite as fair. She denies any current suicidal/homicidal ideation and denies AVHs. 09/27:The patient was seen today. She presents in good spirits. the patient is verbal today. She reports doing better " I feel better." She denies any current suicidal/homicidal ideation and continues to have intermittent AH. 09/26: The patient was seen today. She presents with selective mutism, gesturing. She endorses depression, rates as 5/10. She reports having intermittent AVH, gestured that voice is telling her to cut herself. 09/25:The patient was seen today. She is calm and cooperative. She presents as upbeat. She is smiling and gives me a thumbs up. The patient says she feels better when asked by giving thumbs up. She says she slept "so-so." The patient denies SI/HI or hallucinations. 09/24:The patient was seen today. She is calm and cooperative. She patient has a hx of prior stroke. She is nonverbal. She communicates by thumbs up. The patient says she feels okay. She says she is hearing voices telling her to harm herself. She demonstrates by making punching motions toward her face. She says she did not sleep well. She give me a thumbs down when asked. She says she was depressed by a thumbs up. The patient says she did not sleep well. I asked was she SI/HI. She shrugs her shoulder. REVIEW OF SYSTEMS Constitutional: Negative for weight loss ENT: Negative for stridor Respiratory: Negative for cough or hemoptysis All other systems reviewed and are negative MENTAL STATUS General Appearance and Behavior: age appropriate, good eye contact, cooperative, and calm Cooperation: Cooperative Psychomotor Behavior: within normal limits Mood: "pk" Affect and affective range: Congruent with stated mood Thought Process: Goal oriented Thought Content: Reality oriented Speech: Normal volume and Regular rate and rhythm Suicidal Ideation: Denies Homicidal Ideation: Denies HI Hallucinations:Denies Delusions: None elicited Impulse Control: Fair Insight and Judgment: Good Memory: Good Attention: Attentive Orientation: alert and oriented X 4 Assessment (1) Bipolar Disorder Current Visit: Yes Status: Acute Treatment Plan Patient admitted for inpatient psychiatric evaluation, medication adjustment and close monitoring The patient's behavior, mood, sleep and appetite will be closely monitored. Patient enrolled in individual and group therapeutic sessions and encouraged to attend. Patient provided with a safe and structured environment. Patient's physical health needs will be addressed by the Hospitalist. Hospitalist Consulted Labs including CBC, CMP, Lipid profile and Hemoglobin A1C levels ordered for baseline reference Social Assessment will be completed and the Mover will work with patient and family to ensure a suitable and safe disposition Medication adjustment will be made as clinically indicated Continue home meds Usual Wellness Protestant/Preservation: - Start Trazodone 50 mg po QHS & 50 mg po QHS PRN between 10 PM & 2 AM for insomnia - Start Melatonin 5 mg po QHS to promote circadian rhythm The patient agreed on the treatment plan, understood the risk, benefit, alternative treatment, potential consequence of no treatment, and gave informed consent. Estimated days: Post hospital care: primary care provider, psychiatric provider Case staffed with Dr. Woodward Medications and Allergies Medications and Allergies Allergies Allergy/AdvReac Type Severity Reaction Status Date / Time aspirin Allergy Severe Anaphylaxis Verified 09/23/21 01:45 Penicillins Allergy Mild Itching Verified 09/23/21 01:45 tetracycline Allergy Itching Verified 09/23/21 01:45 Home Medications Medication Instructions Recorded Confirmed Last Taken Type AtorvaSTATin [Lipitor] 80 mg PO QHS 05/07/21 09/23/21 Unknown History Sitagliptin Phosphate [Januvia] 100 mg PO DAILY 05/07/21 09/23/21 Unknown History metFORMIN [Glucophage] 500 mg PO DAILY 05/07/21 09/23/21 Unknown History Apixaban [Eliquis] 5 mg PO Q12HR tablet 07/23/21 09/23/21 09/22/21 20:55 Rx Divalproex [Yong Schwartz] 1,000 mg PO BID 30 Days #60 07/23/21 09/23/21 09/22/21 20:55 Rx Gabapentin 300 mg PO TID 30 Days #90 capsule 07/23/21 09/23/21 09/22/21 20:55 Rx Sertraline [Zoloft] 100 mg PO QDAY 30 Days #30 tablet 07/23/21 09/23/21 09/22/21 09:00 Rx Pantoprazole [Protonix] 40 mg PO QDAY 09/23/21 09/23/21 Unknown History haloperidoL [Haldol] 5 mg PO QHS 09/23/21 09/23/21 Unknown History levETIRAcetam [Keppra TAB] 1,000 mg PO BID 09/23/21 09/23/21 09/22/21 20:55 History Active Meds: Active Medications Acetaminophen (Acetaminophen 325 Mg Tab) 650 mg PO Q6H PRN PRN Reason: Pain, Mild (1-3) Last Admin: 09/26/21 21:16 Dose: 650 mg Apixaban (Apixaban 5 Mg Tab) 5 mg PO Q12HR [facility]; Protocol Last Admin: 09/28/21 08:20 Dose: 5 mg Atorvastatin Calcium (Atorvastatin 40 Mg Tab) 80 mg PO QHS [facility] Last Admin: 09/27/21 21:05 Dose: 80 mg Divalproex Sodium (Divalproex Dr 500 Mg Tab) 1,000 mg PO BID [facility] Last Admin: 09/28/21 08:20 Dose: 1,000 mg Gabapentin (Gabapentin 300 Mg Cap) 300 mg PO TID [facility] Last Admin: 09/28/21 08:20 Dose: 300 mg Haloperidol (Haloperidol 5 Mg Tab) 5 mg PO QHS [facility] Last Admin: 09/27/21 21:04 Dose: 5 mg Levetiracetam (Levetiracetam 500 Mg Tab) 1,000 mg PO BID [facility] Last Admin: 09/28/21 08:21 Dose: 1,000 mg Linagliptin (Linagliptin 5 Mg Tab) 5 mg PO QDAY [facility] Last Admin: 09/28/21 08:21 Dose: 5 mg Metformin HCl (Metformin 500 Mg Tab) 500 mg PO QAMDIAB [facility] Last Admin: 09/28/21 08:21 Dose: 500 mg Pantoprazole Sodium (Pantoprazole 40 Mg Tab) 40 mg PO QDAY [facility] Last Admin: 09/28/21 08:21 Dose: 40 mg Sertraline HCl (Sertraline 100 Mg Tab) 100 mg PO QDAY [facility] Last Admin: 09/28/21 08:20 Dose: 100 mg Trazodone HCl (Trazodone 50 Mg Tab) 50 mg PO QHS [facility] Last Admin: 09/27/21 21:04 Dose: 50 mg Results - Results Labs/Vitals: Laboratory Last Values WBC 4.6 K/mm3 (4.5-11.0) 09/23/21 10:29 RBC 4.70 M/mm3 (3.65-5.03) 09/23/21 10: Hgb 14.1 gm/dl (10.1-14.3) 09/23/21 10: Hct 42.1 % (30.3-42.9) 09/23/21 10:29 MCV 90 fl (79-97) 09/23/21 10:29 MCH 30 pg (28-32) 09/23/21 10: MCHC 33 % (30-34) 09/23/21 10: RDW 14.3 % (13.2-15.2) 09/23/21 10: Plt Count 167 K/mm3 (140-440) 09/23/21 10: Lymph % (Auto) 41.6 % (13.4-35.0) H 09/23/21 10: Terry % (Auto) 7.5 % (0.0-7.3) H 09/23/21 10:29 Eos % (Auto) 2.2 % (0.0-4.3) 09/23/21 10: Baso % (Auto) 0.7 % (0.0-1.8) 09/23/21 10: Lymph # (Auto) 1.9 K/mm3 (1.2-5.4) 09/23/21 10: Terry # (Auto) 0.3 K/mm3 (0.0-0.8) 09/23/21 10: Eos # (Auto) 0.1 K/mm3 (0.0-0.4) 09/23/21 10: Baso # (Auto) 0.0 K/mm3 (0.0-0.1) 09/23/21 10: Seg Neutrophils % 48.0 % (40.0-70.0) 09/23/21: Seg Neutrophils # 2.2 K/mm3 (1.8-7.7) 09/23/21 10:29 Sodium 136 mmol/L (137-145) L 09/23/21 10: Potassium 4.5 mmol/L (3.6-5.0) 09/23/21 10:29 Chloride 97.2 mmol/L (98-107) L 09/23/21 10:29 Carbon Dioxide 29 mmol/L (22-30) 09/23/21 10:29 Anion Gap 14 mmol/L 09/23/21 10:29 BUN 14 mg/dL (7-17) 09/23/21 10:29 Creatinine 0.6 mg/dL (0.6-1.2) 09/23/21 10:29 Estimated GFR > 60 ml/min 09/23/21 10:29 BUN/Creatinine Ratio 23 % 09/23/21 10:29 Glucose 211 mg/dL (65-100) H 09/23/21 10:29 POC Glucose 136 mg/dL (70-105) H 09/28/21 06:29 Hemoglobin A1c 7.3 % (4-6) H 09/23/21 10:29 Calcium 10.2 mg/dL (8.4-10.2) 09/23/21 10:29 Total Bilirubin 0.20 mg/dL (0.1-1.2) 09/23/21 10:29 AST 10 units/L (5-40) 09/23/21 10:29 ALT 10 units/L (7-56) 09/23/21 10:29 Alkaline Phosphatase 88 units/L (35-129) 09/23/21 10:29 Total Protein 7.2 g/dL (6.3-8.2) 09/23/21 10:29 Albumin 4.2 g/dL (3.9-5) 09/23/21 10:29 Albumin/Globulin Ratio 1.4 % 09/23/21 10:29 Triglycerides 78 mg/dL (2-149) 09/23/21 10:29 Cholesterol 157 mg/dL (50-199) 09/23/21 10:29 LDL Cholesterol Direct 59 mg/dL (50-130) 09/23/21 10:29 HDL Cholesterol 72 mg/dL (40-59) H 09/23/21 10:29 Cholesterol/HDL Ratio 2.18 % 09/23/21 10:29 TSH 0.882 mlU/mL (0.270-4.200) 09/23/21 10:29 Valproic Acid 112.8 ug/mL (50-100) H 09/27/21 06:51 Hepatitis A IgM Ab Non-reactive (NonReactive) 09/23/21 10:29 Hep Bs Antigen Non-reactive (Negative) 09/23/21 10:29 Hep B Core IgM Ab Non-reactive (NonReactive) 09/23/21 10:29 Hepatitis C Antibody Non-reactive (NonReactive) 09/23/21 10:29 Last Vital Signs Temp 98.4 F 09/28/21 07:43 Pulse 80 09/28/21 07:43 Resp 16 09/28/21 07:43 BP 108/62 09/28/21 07:43 Pulse Ox 96 09/28/21 07:43
--- NOTE | 2021-09-28 17:15 | Progress Note ---
Assessment and Plan Assessment and Plan - Patient Problems (1) Bipolar disorder Current Visit: No Status: Acute Plan to address problem: Continue medical management, supportive care. (2) COPD (chronic obstructive pulmonary disease) Current Visit: No Status: Acute Plan to address problem: No acute exacerbation at this time, continue medical management, supplemental oxygen as clinically indicated. (3) Diabetes Current Visit: No Status: Acute Plan to address problem: Consistent carbohydrate diet, Accu-Chek, insulin protocol, hypoglycemia protocol. (4) Hypertension Current Visit: No Status: Acute Qualifiers: Hypertension type: primary hypertension Qualified Code(s): I10 - Essential (primary) hypertension Plan to address problem: Monitor blood pressure every shift, continue medical management. (5) Osteoarthritis Current Visit: No Status: Acute Plan to address problem: Pain control, supportive care, continue medical management. (6) Pulmonary embolism Current Visit: No Status: Acute Plan to address problem: continue therapeutic anticoagulation, supportive care. (7) Seizure disorder Current Visit: No Status: Acute Plan to address problem: Continue current therapy, supportive care, no seizure activity at this time. (8) Advance care planning Current Visit: No Status: Acute Plan to address problem: Disease education done, care plan discussed, diagnoses discussed, prognosis discussed, patient is full code. Patient knowledges understanding and agreement with care plan, +30 minutes. (9) Preventative health care Current Visit: No Status: Acute Plan to address problem: Patient counseled regarding outpatient follow-up with primary care physician for all age and risk factor appropriate screening test. +30 minutes. Subjective Date of service: 09/28/21 Principal diagnosis: Bipolar Disorder Interval history: History Interval history: 56 YO Female HTN, OA, Seizure Disorder, COPD, HLD, DM, PE on therapeutic anticoagulation with Eliquis, Schizophrenia, Bipolar Disorder admitted to [facility] for psychiatric stabilization. Consult placed by Dr. Kilgore for medical management. Pt seen and evaluated in the recreation room. Pt resting comfortably. Patient appears to be at baseline level of cognition and function. Objective - Constitutional Vitals: Vital Signs - 12hr 09/28/21 07:43 Temperature 98.4 F Pulse Rate 80 Respiratory 16 Rate Blood Pressure 108/62 O2 Sat by Pulse 96 Oximetry General appearance: Present: no acute distress, well-nourished - EENT Eyes: PERRL, EOM intact ENT: hearing intact, clear oral mucosa Ears: bilateral: normal - Neck Neck: supple, normal ROM - Respiratory Respiratory effort: normal Respiratory: bilateral: CTA - Breasts Breasts: normal - Cardiovascular Heart rate: 78 Rhythm: regular Heart Sounds: Present: S1 & S2. Absent: gallop, rub Extremities: pulses intact, No edema, normal color, Full ROM - Gastrointestinal General gastrointestinal: Present: soft, non-tender, non-distended, normal bowel sounds - Genitourinary Female genitourinary: normal - Integumentary Integumentary: clear, warm, dry - Musculoskeletal Musculoskeletal: 1, strength equal bilaterally - Neurologic Neurologic: moves all extremities - Psychiatric Psychiatric: memory intact, appropriate mood/affect, intact judgment & insight - Labs CBC & Chem 7: 09/23/21 10:29 09/23/21 10:29 Labs: Abnormal lab results 09/27/21 09/28/21 Range/Units 19:17 06:29 POC Glucose 203 H 136 H (70-105) mg/dL
[2021-09-28] MEDS: HALOPERIDOL 5 MG TAB PO SCH (21:12)
[2021-09-28] MEDS: traZODone 50 MG TAB PO SCH (21:12)
--- NOTE | 2021-09-29 09:57 | Discharge Summary ---
Providers - Providers Date of Admission: 09/23/21 01:05 Date of discharge: 09/29/21 Attending physician: NGUYỄN DAVIS MD 09/22/21 22:18 Consult to Physician [CONS] Routine Comment: Consulting Provider: MC MARRERO Physician Instructions: Reason For Exam: New psych admission Primary care physician: MONOTYPER Hospitalization Reason for admission: Suicidal ideation Admitting Diagnosis: F31.5 - BIPOLAR DISORD, CRNT EPSD DEPRESS, SEVERE, W PSYCH FEATURES Condition: Stable Hospital course: The patient was provided inpatient psychiatric treatment with safe and supportive environment, group/individual therapy, psychiatric medication, medication adjustment, adverse effect monitor, medical evaluation, medical treatment, social service assessment, social support meeting, placement assessment and psycho-education. The patients mood, cognition, behavior, motivation, compliance to treatment and appreciation on family/social support are improved and stabilized. At the time of discharge, the patient had no suicidal ideas, no homicidal ideas, no aggressive thoughts, no endangering behavior and no debilitating adverse effects. The patient agreed on the treatment plan, understood the risk, benefit, alternative treatment, potential consequence of no treatment, and gave informed consent. Progress note: 09/28:The patient was seen today. She states she is ok. She reports sleep and appetite as fair. She denies any current suicidal/homicidal ideation and denies AVHs. 09/27:The patient was seen today. She presents in good spirits. the patient is verbal today. She reports doing better " I feel better." She denies any current suicidal/homicidal ideation and continues to have intermittent AH. 09/26: The patient was seen today. She presents with selective mutism, gesturing. She endorses depression, rates as 5/10. She reports having intermittent AVH, gestured that voice is telling her to cut herself. 09/25:The patient was seen today. She is calm and cooperative. She presents as upbeat. She is smiling and gives me a thumbs up. The patient says she feels better when asked by giving thumbs up. She says she slept "so-so." The patient denies SI/HI or hallucinations. 09/24:The patient was seen today. She is calm and cooperative. She patient has a hx of prior stroke. She is nonverbal. She communicates by thumbs up. The patient says she feels okay. She says she is hearing voices telling her to harm herself. She demonstrates by making punching motions toward her face. She says she did not sleep well. She give me a thumbs down when asked. She says she was depressed by a thumbs up. The patient says she did not sleep well. I asked was she SI/HI. She shrugs her shoulder. Disposition: 30 STILL A PATIENT Allergies/Adverse Reactions: Allergies aspirin Allergy (Severe, Verified 09/23/21 01:45) Anaphylaxis Penicillins Allergy (Mild, Verified 09/23/21 01:45) Itching tetracycline Allergy (Verified 09/23/21 01:45) Itching Vital Signs: Last Vital Signs Temp 98.5 F 09/28/21 18:53 Pulse 85 09/28/21 18:53 Resp 18 09/28/21 18:53 BP 106/61 09/28/21 18:53 Pulse Ox 96 09/28/21 18:53 Last Lab: Laboratory Last Values WBC 4.6 K/mm3 (4.5-11.0) 09/23/21 10:29 RBC 4.70 M/mm3 (3.65-5.03) 09/23/21 10:29 Hgb 14.1 gm/dl (10.1-14.3) 09/23/21 10:29 Hct 42.1 % (30.3-42.9) 09/23/21 10:29 MCV 90 fl (79-97) 09/23/21 10:29 MCH 30 pg (28-32) 09/23/21 10:29 MCHC 33 % (30-34) 09/23/21 10:29 RDW 14.3 % (13.2-15.2) 09/23/21 10:29 Plt Count 167 K/mm3 (140-440) 09/23/21 10:29 Lymph % (Auto) 41.6 % (13.4-35.0) H 09/23/21 10:29 [place] % (Auto) 7.5 % (0.0-7.3) H 09/23/21 10:29 Eos % (Auto) 2.2 % (0.0-4.3) 09/23/21 10:29 Baso % (Auto) 0.7 % (0.0-1.8) 09/23/21 10:29 Lymph # (Auto) 1.9 K/mm3 (1.2-5.4) 09/23/21 10:29 [place] # (Auto) 0.3 K/mm3 (0.0-0.8) 09/23/21 10:29 Eos # (Auto) 0.1 K/mm3 (0.0-0.4) 09/23/21 10:29 Baso # (Auto) 0.0 K/mm3 (0.0-0.1) 09/23/21 10:29 Seg Neutrophils % 48.0 % (40.0-70.0) 09/23/21 10:29 Seg Neutrophils # 2.2 K/mm3 (1.8-7.7) 09/23/21 10:29 Sodium 136 mmol/L (137-145) L 09/23/21 10:29 Potassium 4.5 mmol/L (3.6-5.0) 09/23/21 10:29 Chloride 97.2 mmol/L (98-107) L 09/23/21 10:29 Carbon Dioxide 29 mmol/L (22-30) 09/23/21 10:29 Anion Gap 14 mmol/L 09/23/21 10:29 BUN 14 mg/dL (7-17) 09/23/21 10:29 Creatinine 0.6 mg/dL (0.6-1.2) 09/23/21 10:29 Estimated GFR > 60 ml/min 09/23/21 10:29 BUN/Creatinine Ratio 23 % 09/23/21 10:29 Glucose 211 mg/dL (65-100) H 09/23/21 10:29 POC Glucose 158 mg/dL (70-105) H 09/29/21 08:13 Hemoglobin A1c 7.3 % (4-6) H 09/23/21 10:29 Calcium 10.2 mg/dL (8.4-10.2) 09/23/21 10:29 Total Bilirubin 0.20 mg/dL (0.1-1.2) 09/23/21 10:29 AST 10 units/L (5-40) 09/23/21 10:29 ALT 10 units/L (7-56) 09/23/21 10:29 Alkaline Phosphatase 88 units/L (35-129) 09/23/21 10:29 Total Protein 7.2 g/dL (6.3-8.2) 09/23/21 10:29 Albumin 4.2 g/dL (3.9-5) 09/23/21 10:29 Albumin/Globulin Ratio 1.4 % 09/23/21 10:29 Triglycerides 78 mg/dL (2-149) 09/23/21 10:29 Cholesterol 157 mg/dL (50-199) 09/23/21 10:29 LDL Cholesterol Direct 59 mg/dL (50-130) 09/23/21 10:29 HDL Cholesterol 72 mg/dL (40-59) H 09/23/21 10:29 Cholesterol/HDL Ratio 2.18 % 09/23/21 10:29 TSH 0.882 mlU/mL (0.270-4.200) 09/23/21 10:29 Valproic Acid 112.8 ug/mL (50-100) H 09/27/21 06:51 Hepatitis A IgM Ab Non-reactive (NonReactive) 09/23/21 10:29 Hep Bs Antigen Non-reactive (Negative) 09/23/21 10:29 Hep B Core IgM Ab Non-reactive (NonReactive) 09/23/21 10:29 Hepatitis C Antibody Non-reactive (NonReactive) 09/23/21 10:29 Core Measure Documentation - Palliative Care Palliative Care/ Comfort Measures: Not Applicable - Core Measures Any of the following diagnoses?: none - VTE Discharge Requirements Deep Vein Thrombosis/Pulmonary Embolism Present on Admission: No Exam - Constitutional Vitals: Temp Pulse Resp BP Pulse Ox 98.5 F 85 18 106/61 96 09/28/21 18:53 09/28/21 18:53 09/28/21 18:53 09/28/21 18:53 09/28/21 18:53 Plan Activity: advance as tolerated Weight Bearing Status: Weight Bear as Tolerated Diet: diabetic Durable Medical Equipment Needed Upon Discharge: Wheelchair Care Plan Goals: Maintain good and stable mental health. Plan of Treatment: The patient should be compliant with medications, not to use drugs and not to drink alcohol.The patient understands that if suicidal ideas, homicidal ideas, or any endangering thoughts/behavior arise, they should immediately seek for emergent assistance including but not limited to crisis hot line and emergency room. Follow up with outpatient Psychiatrist and PCP within 7 - 14 days of discharge. Follow up with: PRIMARY CARE,MD [Primary Care Provider] - 7 Days Prescriptions: traZODone [Desyrel] 50 mg PO QHS 30 Days #30 tablet haloperidoL [Haldol] 5 mg PO QHS 30 Days #[address] [Yong Schwartz] 1,000 mg PO BID 30 Days #[address] [Yong Schwartz] 1,000 mg PO BID 30 Days #60 Gabapentin 300 mg PO TID 30 Days #90 capsule Sertraline [Zoloft] 100 mg PO QDAY 30 Days #30 tablet
[2021-09-29 11:08] VITALS: BP 116/70
[2021-09-29] MEDS: PANTOPRAZOLE 40 MG TAB PO SCH (11:17)
[2021-09-29] MEDS: APIXABAN 5 MG TAB PO SCH (11:18)
[2021-09-29] MEDS: GABAPENTIN 300 MG CAP PO SCH (11:18)
[2021-09-29] MEDS: DIVALPROEX DR 500 MG TAB PO SCH (11:18)
[2021-09-29] MEDS: SERTRALINE 100 MG TAB PO SCH (11:18)
[2021-09-29] MEDS: levETIRAcetam 500 MG TAB PO SCH (11:18)
[2021-09-29] MEDS: LINAGLIPTIN 5 MG TAB PO SCH (11:19)
[2021-09-29] MEDS: metFORMIN 500 MG TAB PO SCH (11:19)
== END 2021-09-29 14:05 | disposition home or self-care (01) | DRG 885 ==
LOC: 3A 14:49 → UNDOADMIN 14:49 → 5A 09-23 01:05
PROVIDERS: ADMIT Psychiatry & Neurology Psychiatry; ATTEND Psychiatry & Neurology Psychiatry
DX: F31.9 Bipolar disorder, unspecified (principal); R45.851 Suicidal ideations; J44.9 Chronic obstructive pulmonary disease, unspecified; I10 Essential (primary) hypertension; F20.9 Schizophrenia, unspecified; E78.5 Hyperlipidemia, unspecified; G40.909 Epilepsy, unspecified, not intractable, without status epilepticus; Z83.3 Family history of diabetes mellitus; Z86.711 Personal history of pulmonary embolism; Z82.49 Family history of ischemic heart disease and other diseases of the circulatory system; Z88.6 Allergy status to analgesic agent; Z88.0 Allergy status to penicillin; Z88.8 Allergy status to other drugs, medicaments and biological substances; Z79.84 Long term (current) use of oral hypoglycemic drugs
CPT/HCPCS: 36415; 80053; 80061; 80074; 80164; 82962; 83036; 84443; 85025; G0378